=== PATIENT | female | born 1995 | race Two or more races ===

== ENCOUNTER → 2019-12-15 13:30 | Outpatient (BNVA) | payer OTHER, SELFPAY | PROVIDERS: PCP Internal Medicine; Referring Provider Internal Medicine; Visit Provider Advanced Practice Midwife | DX: Z76.89 Persons encountering health services in other specified circumstances (principal) ==

== ENCOUNTER 2019-12-15 14:56 | Outpatient (REF) | payer OTHER, SELFPAY ==
[2019-12-16 02:55] LABS: CT PCR NOT DETECTED (Not Detect.); NG PCR NOT DETECTED (Not Detect.)
[2019-12-16 09:07] LABS: BV Int Neg Control Negative (Negative); BV Int Pos Control Positive (Positive)
[2020-01-14 06:11] LABS: HPV mRNA E6/E7 rflx Not Detected (Not Detected)
== END 2019-12-15 14:57 | disposition home or self-care (01) ==
LOC: HO.LNP 14:56
PROVIDERS: Visit Provider Advanced Practice Midwife
DX: Z12.4 Encounter for screening for malignant neoplasm of cervix (principal); Z11.3 Encounter for screening for infections with a predominantly sexual mode of transmission; R10.2 Pelvic and perineal pain
CPT/HCPCS: 87480; 87491; 87510; 87591; 87624; 87625; 87660; 88142

== ENCOUNTER 2019-12-16 16:10 | Outpatient (REF) | payer OTHER, SELFPAY ==
--- NOTE | 2019-12-16 16:24 | US_ITS ---
EXAMINATION: US PELVIS ULTRASOUND CLINICAL INFORMATION: Pelvic and perineal pain. Age 24. LMP 12/06/2019. COMPARISON: Ultrasound pelvis 03/18/2018 TECHNIQUE: Ultrasound of the pelvis is performed using both transabdominal and transvaginal transducers along with Doppler. Transvaginal imaging is performed due to inadequate visualization transabdominally. FINDINGS: Uterus: The uterus is anteverted and measures 9.6 x 3.8 x 4.1 cm. The double wall endometrial thickness is 5 mm. 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 No definite fundal cleft is seen to confirm bicornuate uterus. This could be further assessed with MRI if clinically indicated. There is small anterior right intramural fundal fibroid again noted approximately 0.5 cm similar to prior study. Echogenic focus within the posterior endometrium or junctional zone again seen. No shadowing. Adnexa: Both ovaries are visualized. There is normal color flow to the adnexa. There is no ovarian torsion. There is no pelvic ascites or fluid collection. No adnexal mass. Right ovary measures 3.9 x 2.2 x 2.4 cm. Volume 11 mL. Left ovary measures 3.9 x 1.9 x 2.2 cm. Volume 9 mL. There is prominent vascularity at the bilateral adnexa and involving the uterus. Findings also noted previously and may be related to pelvic congestion syndrome. Clinically correlate. IMPRESSION: 1. Prominent adnexal and uterine vascularity which may be associated with pelvic congestion syndrome. 2. No adnexal mass or pelvic ascites. 3. Tiny stable uterine fundal fibroid 0.5 cm. Echogenic focus posterior endometrium stable. 4. 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 No definite fundal cleft seen by ultrasound to confirm bicornuate uterus.
== END 2019-12-16 16:11 | disposition home or self-care (01) ==
LOC: HO.US 16:10
PROVIDERS: PCP Internal Medicine; Referring Provider Internal Medicine; Visit Provider Advanced Practice Midwife
DX: R10.2 Pelvic and perineal pain (principal); Z20.828 Contact with and (suspected) exposure to other viral communicable diseases
CPT/HCPCS: 76830; 76856; 87635

== ENCOUNTER → 2019-12-30 10:39 | Outpatient (BNVA) | payer OTHER, SELFPAY | PROVIDERS: PCP Internal Medicine; Referring Provider Internal Medicine; Visit Provider Advanced Practice Midwife | DX: N94.89 Other specified conditions associated with female genital organs and menstrual cycle (principal); F17.210 Nicotine dependence, cigarettes, uncomplicated; Z71.2 Person consulting for explanation of examination or test findings | CPT/HCPCS: 99212 ==

== ENCOUNTER 2020-01-25 15:46 | Emergency (ER) | payer OTHER, SELFPAY ==
[2020-01-25 16:15] VITALS: BP 122/58; PULSE 88; RESP 16; TEMP 37; O2SAT 99; BMI 23.4
--- NOTE | 2020-01-25 18:03 | ED_ITS ---
HPI - Abdominal Pain General Chief Complaint: Abdominal Pain Stated Complaint: PELVIC PAIN Time Seen by Provider: 01/25/20 17:48 Source: patient Mode of arrival: ambulatory Limitations: no limitations History of Present Illness HPI narrative: 24-year-old female with a past medical history of pelvic congestion syndrome here with vaginal bleeding and abdominal cramping for the last few weeks. The patient tells me she started to have her menses 01/04 and has continued to have her menses since then. She tells me she has very light spotting and only requires a panty liner and make changes 1 to 2 times a day. She was seen by creative project manager and was started on Depo and received her 1st shot 01/04. she continues to have lower pelvic cramping with vaginal bleeding. No vaginal discharge or concern for STD exposure. No urinary symptoms, fevers or chills. MD elicited complaint: other (pelvic pain) Onset (ago): week(s) Pain Consistency: intermittent Location: pelvis Severity: mild Quality: cramping Radiation: none Migration to: no migration Exacerbating factors: nothing Relieving factors: nothing Associated symptoms: denies other symptoms Related Data Home Medications Medication Instructions Recorded Confirmed ibuprofen 200 mg tablet 400 mg PO Q8H 12/30/19 Previous Rx's Medication Instructions Recorded medroxyprogesterone 150 mg/mL 150 mg IM [id number] #1 ml 12/30/19 intramuscular suspension Allergies Allergy/AdvReac Type Severity Reaction Status Date / Time No Known Allergies Allergy Unverified 11/18/19 19:37 [No Known Allergies*] Review of Systems Review of Systems Yes all other systems are reviewed and are negative Constitutional: Reports no additional constitutional complaints, Denies body ache(s), Denies chills, Denies fever(s), Denies headache(s) and Denies weakness Eyes: Reports no additional eye complaints and Denies change in vision Reports system reviewed and no additional complaints, except as documented, Denies dizziness, Denies headache(s), Denies nasal congestion, Denies nasal discharge and Denies neck pain Cardiovascular: Reports no additional cardiovascular complaints, Denies chest pain, Denies leg edema and Denies dyspnea Respiratory: Reports no additional respiratory complaints, Denies cough and De nies dyspnea Gastrointestinal: Reports no additional gastrointestinal complaints, Denies abdominal pain, Denies diarrhea, Denies nausea and Denies vomiting Genitourinary: Reports no additional female genitourinary complaints, Reports abnormal vaginal bleeding and Denies urinary incontinence Comments: +pelvic pain Musculoskeletal: Reports no additional musculoskeletal complaints, Denies back pain, Denies arthralgias, Denies joint swelling, Denies neck pain, Denies numbness and Denies tingling Skin/Breast: Reports system reviewed and no additional complaints, except as docu and Denies rash Reports system reviewed and no additional complaints, except as documented, Denies Abnormal speech present, Denies dizziness, Denies headache(s), Denies numbness, Denies tingling and Denies weakness Physical Exam Vital Signs: Vital Signs: Last Vital Signs Temp 98.6 F 01/25/20 19:45 Pulse 79 01/25/20 19:45 Resp 14 01/25/20 19:45 BP 128/62 01/25/20 19:45 Pulse Ox 100 01/25/20 19:45 Body Mass Index 23.4 Const: General: cooperative, healthy appearing, comfortable and no acute distress Orientation/consciousness: patient oriented x3 Limitations: no limitations HENMT: Head: Yes normal to inspection Ears: hearing grossly normal bilaterally General nose exam: Normal external nose present Face and sinus: Yes normal facial exam Mouth: Normal oral and palatal mucosa present Throat: Yes posterior oropharynx normal Eyes: General: appearance normal, both eyes and all related structures Pupils: Equal, round and reactive pupils present Neck: Neck: Yes normal visual inspection Chest: Chest palpation & inspection: normal inspection of the chest Resp: Effort & Inspection: normal respiratory effort Auscultation: clear to auscultation bilaterally Cardio: Rate: regular rate Rhythm: regular rhythm Peripheral pulses: Peripheral pulses 2+ throughout GI: Inspection: Yes normal to inspection Palpation (GI): Soft to palpation and nontender Auscultation: normal bowel sounds : Other: darlene general adjuster External Female Exam: normal external appearance Speculum Exam - Vagina: normal appearance of the vagina and vaginal bleeding (small, dark red) Speculum Exam - Cervix: normal appearance of the cervix Bimanual exam- vagina & uterus: normal bimanual exam Bimanual Exam- Adnexa, other: normal adnexae OB/external & speculum: vaginal bleeding (small, dark red) Back/Spine/Pelvis: Thoracic/Lumbar Spine: thoracic and lumbar spine normal to inspection Skin: General skin exam: no rashes or lesions noted Neuro: General: patient oriented x3, no focal motor deficits and normal sensation to monofilament Cranial nerves: Yes Equal, round and reactive pupils present Cognition (Neuro): normal cognition Speech: No Abnormal speech present Gait exam (Neuro): Normal gait present Motor exam (neuro): 5/5 motor strength present throughout Extrem: General: Yes normal to inspection Course Course Course Narrative: Vaginal bleeding and pelvic cramping for the last 2 weeks. We will need labs, UA, urine , pelvic exam. 2000- CBC unremarkable. UA negative. Urine is negative. Pelvic exam shows a small amount of bleeding. Patient is improved with Toradol IV here. We discussed that with Depo irregular menses is expected. If she wishes to have a different control option she can discuss this with creative project manager. Recommended supportive care and discussion with them in the morning. Reviewed worrisome signs and symptoms and when to return to the emergency department. Comfortable discharge home MDM - Abdominal Pain MDM Narrative Medical decision making narrative: dysmenorrhea, pelvic congestion syndrome, , STD Lab Data Result diagrams: 01/25/20 18:58 01/25/20 18:58 Labs: Lab Results 01/25/20 01/25/20 01/25/20 Range/Units 18:58 18:58 18:58 WBC 7.9 (4.8-10.8) X10*3/uL RBC 4.05 L (4.20-5.50) X10*6/uL Hgb 12.7 (12.0-16.0) g/dl Hct 37.3 (37-47) % MCV 92.1 (80-98) fL MCH 31.4 (27.0-33.0) pg MCHC 34.0 (31.0-35.0) g/dl RDW 11.2 (11.0-16.0) % Plt Count 205 (160-400) X10*3/uL MPV 10.9 (9.4-12.3) fL Immature Gran % (Auto) 0.3 (0.0-0.4) % Neut % (Auto) 68.6 (45-73) % Lymph % (Auto) 23.8 (20-40) % [place] % (Auto) 5.6 (2-11) % Eos % (Auto) 1.4 (0-4) % Baso % (Auto) 0.3 (0-2) % Lymph # (Auto) 1.9 (1.2-4.9) X10*3/uL [place] # (Auto) 0.4 (0.1-1.2) X10*3/uL Eos # (Auto) 0.1 (0.0-0.4) X10*3/uL Baso # (Auto) 0.0 (0.0-0.2) X10*3/uL Abs Immat Gran (auto) 0.02 (0.00-0.03) X10*3/uL Absolute Neuts (auto) 5.4 (2.0-8.3) X10*3/uL Absolute Nucleated RBC 0.000 (0.0-0.012) X10*3/uL Nucleated RBC % (auto) 0.0 (0.0-0.2) /100WBC Sodium 139 (135-145) mmol/L Potassium 4.2 (3.3-5.1) mmol/l Chloride 108 (96-108) mmol/L Carbon Dioxide 23 (22-29) mmol/L Anion Gap 12 (12-20) BUN 9 (9-16) mg/dL Creatinine 0.69 (0.5-1.4) mg/dL Estim Creat Clear Calc 124.6 Estimated GFR > 60 Random Glucose 81 (60-115) mg/dL Calcium 9.2 (8.4-10.2) mg/dL Urine Color YELLOW Urine Appearance CLEAR Urine pH 6.5 (5.0-8.0) Ur Specific [place] 1.020 (1.005-1.025) Urine Protein NEG (NEG-TRACE) MG/DL Urine Glucose (UA) NEG (NEG) MG/DL Urine Ketones 5 (NEG) MG/DL Urine Blood 3+ H (NEG) Urine Nitrite NEG (NEG) Ur Leukocyte Esterase NEG (NEG) Urine RBC 1-4 (0) /HPF Urine WBC 1-4 (0-4) /HPF Ur Squamous Epith Cells 2+ /LPF Urine Bacteria 3+ /LPF Urine Mucus 2+ /LPF Urine Test NEGATIVE (NEGATIVE) Discharge Plan Discharge Clinical Impression: Dysmenorrhea, Female pelvic congestion syndrome Patient Disposition: Home, Self-Care Instructions: Dysmenorrhea (ED) Additional Instructions: Call your creative project manager tomorrow Apply heat to your abdomen and take Motrin or Tylenol for pain as needed Prescriptions: No Action ibuprofen [Motrin IB] 200 mg tablet 400 mg PO Q8H RF: 0 medroxyprogesterone [Depo-Provera] 150 mg/mL suspension 150 mg IM [id number] Qty: 1 RF: 3 Referrals: Physician,Unknown [Primary Care Provider] - 2 days Mohan Danielle MD [Physician] - 2 days Interventions: ED Discharge Assessment Last Done: 01/25/20 20:11 Discharge Date/Time: 01/25/20 20:11 [facility] Past Medical History Attestation statement: The following information was validated with the patient. Source: old records reviewed and nursing notes reviewed Surgical History Hx of section Tubal ligation status Social History Social History Alcohol intake: current Smoking Status: Current every day smoker Tobacco Type: Cigarette Cigarettes Per Day: 20 Years Smoked: 8 Advance Directives: No Advance Directives Information Provided: Yes Sexual orientation: Straight/Heterosexual Gender identity: female
[2020-01-25] MEDS: Ketorolac Tromethamine 30 MG/ML VIAL IVPUSH (18:58)
[2020-01-25 19:09] LABS: Basophils Percent Auto 0.3 % (0-2); Eosinophils Absolute Auto 0.1 X10*3/uL (0.0-0.4); Eosinophils Percent Auto 1.4 % (0-4); Hematocrit 37.3 % (37-47); Hemoglobin 12.7 g/dl (12.0-16.0); Imm Gran Abs Auto 0.02 X10*3/uL (0.00-0.03); Imm Gran Pct Auto 0.3 % (0.0-0.4); Lymphocytes Absolute Auto 1.9 X10*3/uL (1.2-4.9); Lymphocytes Percent Auto 23.8 % (20-40); MANUAL DIFF FLAG NO; Mean Corpuscular Hemoglobin 31.4 pg (27.0-33.0); Mean Corpuscular Volume 92.1 fL (80-98); Mean Platelet Volume 10.9 fL (9.4-12.3); Monocytes Absolute Auto 0.4 X10*3/uL (0.1-1.2); Monocytes Percent Auto 5.6 % (2-11); Neutrophils Absolute Auto 5.4 X10*3/uL (2.0-8.3); Neutrophils Percent Auto 68.6 % (45-73); Platelet Count 205 X10*3/uL (160-400); Red Blood Count 4.05 X10*6/uL (4.20-5.50); Red Cell Distribution Width 11.2 % (11.0-16.0); White Blood Count 7.9 X10*3/uL (4.8-10.8)
--- NOTE | 2020-01-25 19:11 | PC.NURSE ---
CAREER DISCOVERY TEACHER at bedside for pelvic, pt tolerating procedure well. Pt aware of plan of care, awaiting labs at this time.
[2020-01-25 19:23] LABS: Glucose Urine UA NEG (NEG); Leukocyte Esterase Urine NEG (NEG); Nitrite Urine NEG (NEG); PH 6.5 (5.0-8.0); Urine Blood 3+ (NEG); Urine Ketones 5 MG/DL (NEG); Urine Protein NEG (NEG-TRACE)
[2020-01-25 19:26] LABS: Appearance Urine CLEAR; Color Urine YELLOW
[2020-01-25 19:27] LABS: UPreg QC Valid YES; Urine Pregnancy NEGATIVE (NEGATIVE)
[2020-01-25 19:36] LABS: Bacteria Urine 3+ /LPF; Mucus Urine 2+ /LPF; Squamous Epithelial Cell Urine 2+ /LPF
[2020-01-25 19:39] LABS: Anion Gap 12 (12-20); Blood Urea Nitrogen 9 mg/dL (9-16); Calcium 9.2 mg/dL (8.4-10.2); Carbon Dioxide 23 mmol/L (22-29); Chloride 108 mmol/L (96-108); Creatinine Clr Calc Pharmacy 124.6; Estimated Glomerular Filt Rate > 60; Glucose Random 81 mg/dL (60-115); Potassium 4.2 mmol/l (3.3-5.1); Sodium 139 mmol/L (135-145)
[2020-01-25 19:45] VITALS: BP 128/62; PULSE 79; RESP 14; TEMP 37; O2SAT 100
== END 2020-01-25 20:11 | disposition home or self-care (01) ==
PROVIDERS: Nurse Practitioner Family; Emergency Provider Emergency Medicine
DX: N94.4 Primary dysmenorrhea (principal); R10.2 Pelvic and perineal pain; N94.89 Other specified conditions associated with female genital organs and menstrual cycle
CPT/HCPCS: 36415; 80048; 81001; 81025; 85025; 96374; 99283; 99284; J1885

== ENCOUNTER 2020-01-31 15:19 | Outpatient (REF) | payer OTHER, SELFPAY ==
[2020-02-01 09:18] LABS: CT PCR NOT DETECTED (Not Detect.); NG PCR NOT DETECTED (Not Detect.)
[2020-02-01 13:27] LABS: BV Int Neg Control Negative (Negative); BV Int Pos Control Positive (Positive)
== END 2020-01-31 15:20 | disposition home or self-care (01) ==
LOC: HO.LAB 15:19
PROVIDERS: PCP Internal Medicine; Visit Provider Advanced Practice Midwife
DX: N94.6 Dysmenorrhea, unspecified (principal)
CPT/HCPCS: 87480; 87491; 87510; 87591; 87660; 99212

== ENCOUNTER → 2020-03-22 10:48 | Outpatient (BNVA) | payer OTHER, SELFPAY | PROVIDERS: Visit Provider Advanced Practice Midwife | DX: Z30.42 Encounter for surveillance of injectable contraceptive (principal) | CPT/HCPCS: 96372; 99211; J1050 ==

== ENCOUNTER 2020-04-12 16:51 | Outpatient (REF) | payer OTHER, SELFPAY ==
[2020-04-12 17:28] LABS: MANUAL DIFF FLAG NO
[2020-04-12 17:36] LABS: Basophils Percent Auto 0.6 % (0-2); Eosinophils Absolute Auto 0.1 X10*3/uL (0.0-0.4); Eosinophils Percent Auto 1.3 % (0-4); Hematocrit 37.8 % (37-47); Imm Gran Abs Auto 0.01 X10*3/uL (0.00-0.03); Imm Gran Pct Auto 0.1 % (0.0-0.4); Lymphocytes Absolute Auto 1.7 X10*3/uL (1.2-4.9); Lymphocytes Percent Auto 23.5 % (20-40); Mean Corpuscular HGB Conc 34.4 g/dl (31.0-35.0); Mean Corpuscular Hemoglobin 31.9 pg (27.0-33.0); Mean Corpuscular Volume 92.9 fL (80-98); Mean Platelet Volume 11.2 fL (9.4-12.3); Monocytes Absolute Auto 0.5 X10*3/uL (0.1-1.2); Monocytes Percent Auto 6.8 % (2-11); Neutrophils Absolute Auto 4.8 X10*3/uL (2.0-8.3); Neutrophils Percent Auto 67.7 % (45-73); Platelet Count 201 X10*3/uL (160-400); Red Blood Count 4.07 X10*6/uL (4.20-5.50); Red Cell Distribution Width 11.5 % (11.0-16.0); White Blood Count 7.1 X10*3/uL (4.8-10.8)
[2020-04-12 18:17] LABS: Free T4 (Free Thyroxine) 1.12 ng/dL (0.71-1.85); Thyroid Stimulating Hormone 0.96 uIU/mL (0.32-4.0)
[2020-04-12 18:49] LABS: Alanine Aminotransferase 10 U/L (0-31); Alkaline Phosphatase 69 U/L (39-117); Anion Gap 14 (12-20); Aspartate Amino Transferase 13 U/L (5-31); Bilirubin Total 1.2 mg/dL (0.0-1.0); Blood Urea Nitrogen 7 mg/dL (9-16); C Reactive Protein 0.03 mg/dL (< or = 0.50); Calcium 9.4 mg/dL (8.4-10.2); Carbon Dioxide 24 mmol/L (22-29); Chloride 108 mmol/L (96-108); Estimated Glomerular Filt Rate > 60; Glucose Random 94 mg/dL (60-115); Iron 102 mcg/dL (30-160); Percent Iron Saturation 33 % (15-50); Potassium 4.2 mmol/L (3.3-5.1); Sodium 142 mmol/L (135-145); Total Iron Binding Capacity 308 mcg/dL (228-428); Total Protein 7.4 g/dL (6.5-8.0); Unsaturated Iron Binding 206 ug/dL
[2020-04-12 18:58] LABS: Vitamin B12 180 pg/mL (200-900)
== END 2020-04-12 16:52 | disposition home or self-care (01) ==
LOC: HO.LAB 16:51
PROVIDERS: PCP Internal Medicine; Visit Provider Internal Medicine
DX: R42 Dizziness and giddiness (principal); R63.5 Abnormal weight gain; D51.9 Vitamin B12 deficiency anemia, unspecified
CPT/HCPCS: 36415; 80053; 82607; 83540; 84439; 84443; 85025; 86140

== ENCOUNTER → 2020-05-29 14:08 | Outpatient (BNVA) | payer OTHER, SELFPAY | PROVIDERS: PCP Internal Medicine; Visit Provider Advanced Practice Midwife | DX: Z30.42 Encounter for surveillance of injectable contraceptive (principal); R10.2 Pelvic and perineal pain; N94.6 Dysmenorrhea, unspecified | CPT/HCPCS: Q3014 ==

== ENCOUNTER → 2020-06-12 11:14 | Outpatient (BNVA) | payer OTHER, SELFPAY | PROVIDERS: PCP Internal Medicine; Visit Provider Advanced Practice Midwife | DX: Z30.42 Encounter for surveillance of injectable contraceptive (principal) | CPT/HCPCS: 96372; 99211; J1050 ==

== ENCOUNTER 2020-06-21 10:57 | Outpatient (REF) | payer OTHER, SELFPAY ==
--- NOTE | ~2020-06-21 | US_ITS ---
EXAMINATION: US PELVIS AND TRANSVAGINAL CLINICAL INFORMATION: Pelvic pain with spotting. COMPARISON: Ultrasound pelvis complete 12/16/2019 TECHNIQUE: Transabdominal and transvaginal ultrasound of the pelvis is performed. FINDINGS: The uterus is anteverted and anteflexed measuring 9.3 cm in length, 2.6 cm in AP and 4.8 cm in transverse dimension. The endometrial thickness is 0.3 cm. There are scattered, comet-shaped calcifications seen in the endometrial canal. There is a hypoechoic lesion in the anterior fundus of the uterus measuring 0.8 x 0.6 x 0.8 cm consistent with a fibroid. Previously, it measured 0.5 x 0.4 x 0.6 cm. There are small nabothian cysts seen in the cervix. The right ovary measures 3.2 x 1.9 x 1.9 cm and volume 6.1 mL. Previously, it measured 3.9 x 2.4 x 2.2 cm. The left ovary measures 2.7 x 2.0 x 1.8 cm and volume 4.9 mL. Previously, it measured 3.9 x 2.2 x 1.9 cm. There is no free fluid in the cul-de-sac. US/US pelvic and transvaginal IMPRESSION: Stable small anterior fundal uterine fibroid. Small nabothian cyst in cervix. Ovaries are unremarkable.
== END 2020-06-21 10:58 | disposition home or self-care (01) ==
LOC: HO.US 10:57
PROVIDERS: PCP Internal Medicine; Visit Provider Advanced Practice Midwife
DX: N94.6 Dysmenorrhea, unspecified (principal)
CPT/HCPCS: 76830; 76856

== ENCOUNTER → 2020-06-26 11:59 | Outpatient (BNVA) | payer OTHER, SELFPAY | PROVIDERS: PCP Internal Medicine; Visit Provider Advanced Practice Midwife ==

== ENCOUNTER → 2020-09-05 13:00 | Outpatient (BNVA) | payer OTHER, SELFPAY | PROVIDERS: PCP Internal Medicine; Visit Provider Advanced Practice Midwife | DX: Z30.42 Encounter for surveillance of injectable contraceptive (principal) | CPT/HCPCS: 96372; 99211 ==

== ENCOUNTER 2020-10-11 13:53 | Outpatient (REF) | payer OTHER, SELFPAY ==
[2020-10-12 04:19] LABS: CT PCR NOT DETECTED (Not Detect.); NG PCR NOT DETECTED (Not Detect.)
[2020-10-12 09:24] LABS: BV Int Neg Control Negative (Negative); BV Int Pos Control Positive (Positive)
== END 2020-10-11 13:54 | disposition home or self-care (01) ==
LOC: HO.LAB 13:53
PROVIDERS: PCP Internal Medicine; Visit Provider Advanced Practice Midwife
DX: N92.1 Excessive and frequent menstruation with irregular cycle (principal); R10.2 Pelvic and perineal pain
CPT/HCPCS: 81025; 87480; 87491; 87510; 87591; 87660; 99212

== ENCOUNTER 2020-10-12 17:54 | Outpatient (REF) | payer OTHER, SELFPAY ==
[2020-10-12 08:59] LABS: Hematocrit 39.8 % (37-47); Mean Corpuscular HGB Conc 35.2 g/dl (31.0-35.0); Mean Corpuscular Hemoglobin 32.3 pg (27.0-33.0); Mean Corpuscular Volume 91.9 fL (80-98); Mean Platelet Volume 10.4 fL (9.4-12.3); Platelet Count 201 X10*3/uL (160-400); Red Blood Count 4.33 X10*6/uL (4.20-5.50); Red Cell Distribution Width 11.2 % (11.0-16.0); White Blood Count 5.5 X10*3/uL (4.8-10.8)
[2020-10-12 09:53] LABS: Thyroid Stimulating Hormone 1.08 uIU/mL (0.32-4.0)
== END 2020-10-12 17:55 | disposition home or self-care (01) ==
LOC: HO.LAB 17:54
PROVIDERS: Visit Provider Advanced Practice Midwife
DX: N92.1 Excessive and frequent menstruation with irregular cycle (principal)
CPT/HCPCS: 36415; 84443; 85027

== ENCOUNTER → 2020-10-27 09:48 | Outpatient (BNVA) | payer OTHER, SELFPAY | PROVIDERS: PCP Internal Medicine; Visit Provider Advanced Practice Midwife | DX: N92.1 Excessive and frequent menstruation with irregular cycle (principal); R10.2 Pelvic and perineal pain; R87.610 Atypical squamous cells of undetermined significance on cytologic smear of cervix (ASC-US) | CPT/HCPCS: 81025; 99212 ==

== ENCOUNTER → 2020-11-28 09:30 | Outpatient (BNVA) | payer OTHER, SELFPAY | PROVIDERS: Visit Provider Obstetrics & Gynecology | DX: Z30.09 Encounter for other general counseling and advice on contraception (principal); N93.9 Abnormal uterine and vaginal bleeding, unspecified; D21.9 Benign neoplasm of connective and other soft tissue, unspecified; R87.610 Atypical squamous cells of undetermined significance on cytologic smear of cervix (ASC-US) | CPT/HCPCS: 99212 ==

== ENCOUNTER → 2021-02-21 10:48 | Outpatient (BNVA) | payer OTHER, SELFPAY | PROVIDERS: Visit Provider Obstetrics & Gynecology | DX: Z30.9 Encounter for contraceptive management, unspecified (principal) | CPT/HCPCS: 99212 ==

== ENCOUNTER 2022-03-21 15:38 | Outpatient (REF) | payer OTHER, SELFPAY ==
[2022-03-21 16:09] LABS: MANUAL DIFF FLAG NO
[2022-03-21 16:34] LABS: Basophils Percent Auto 0.4 % (0-2); Eosinophils Absolute Auto 0.1 X10*3/uL (0.0-0.4); Eosinophils Percent Auto 0.7 % (0-4); Hematocrit 38.3 % (37.0-47.0); Hemoglobin 13.1 g/dl (12.0-16.0); Imm Gran Abs Auto 0.02 X10*3/uL (0.00-0.03); Imm Gran Pct Auto 0.3 % (0.0-0.4); Lymphocytes Absolute Auto 1.4 X10*3/uL (1.2-4.9); Lymphocytes Percent Auto 20.4 % (20-40); Mean Corpuscular HGB Conc 34.2 g/dl (31.0-35.0); Mean Corpuscular Hemoglobin 32.6 pg (27.0-33.0); Mean Corpuscular Volume 95.3 fL (80.0-98.0); Mean Platelet Volume 11.2 fL (9.4-12.3); Monocytes Absolute Auto 0.3 X10*3/uL (0.1-1.2); Monocytes Percent Auto 4.9 % (2-11); Neutrophils Absolute Auto 5.1 x10*3/uL (2.0-8.3); Neutrophils Percent Auto 73.3 % (45-73); Platelet Count 184 X10*3/uL (160-400); Red Blood Count 4.02 X10*6/uL (4.20-5.50); Red Cell Distribution Width 11.8 % (11.0-16.0); White Blood Count 6.9 X10*3/uL (4.8-10.8)
[2022-03-21 16:59] LABS: Alanine Aminotransferase 9 U/L (0-31); Albumin Level 4.7 g/dL (3.5-5.0); Alkaline Phosphatase 78 U/L (39-117); Anion Gap 11 (12-20); Aspartate Amino Transferase 14 U/L (5-31); Bilirubin Total 1.3 mg/dL (0.0-1.0); Blood Urea Nitrogen 13 mg/dL (9-16); C Reactive Protein < 0.04 mg/dL (< or = 0.50); Calcium 9.3 mg/dL (8.4-10.2); Carbon Dioxide 26 mmol/L (22-29); Chloride 104 mmol/L (96-108); Estimated Glomerular Filt Rate > 60; Glucose Random 83 mg/dL (60-115); Potassium 3.4 mmol/L (3.3-5.1); Sodium 138 mmol/L (135-145)
[2022-03-21 17:11] LABS: Free T4 (Free Thyroxine) 1.13 ng/dL (0.71-1.85); Thyroid Stimulating Hormone 0.51 uIU/mL (0.32-4.0)
[2022-03-21 17:17] LABS: Vitamin B12 179 pg/mL (200-900)
[2022-03-22 18:13] LABS: Thyroid Peroxidase Antibodies 2 IU/mL (<9)
== END 2022-03-21 15:39 | disposition home or self-care (01) ==
LOC: HO.LAB 15:38
PROVIDERS: PCP Internal Medicine; Visit Provider Internal Medicine
DX: R00.2 Palpitations (principal); R63.4 Abnormal weight loss
CPT/HCPCS: 36415; 80053; 82607; 84439; 84443; 85025; 86140; 86376

== ENCOUNTER 2022-06-28 22:47 | Emergency (ER) | payer OTHER, SELFPAY ==
[2022-06-28 22:53] VITALS: BP 129/80; PULSE 90; RESP 18; TEMP 36.4; O2SAT 100; BMI 16.6
--- NOTE | 2022-06-29 00:50 | ED_ITS ---
HPI - Wound/Laceration General Chief Complaint: Wound/Laceration Stated Complaint: R arm Lac Time Seen by Provider: 06/29/22 00:24 Source: patient Mode of arrival: ambulatory Limitations: no limitations History of Present Illness HPI narrative: Patient comes to the emergency room complaining of a laceration to the forearm on the left side. Earlier today, patient was trying to cut watermelon, patient was holding it in her arm against her body, the watermelon stepped in the night at the forearm. Patient denies any other injuries. Related Data Home Medications Medication Instructions Recorded Confirmed buspirone 10 mg tablet 10 mg PO BID 06/26/20 temazepam 15 mg capsule 15 mg PO BEDTIME PRN 06/26/20 aripiprazole 10 mg tablet 10 mg PO DAILY 10/11/20 hydroxyzine HCl 25 mg tablet 25 mg PO BID PRN 10/11/20 trazodone 50 mg tablet 25 - 50 mg PO BEDTIME PRN 10/11/20 Previous Rx's Medication Instructions Recorded ibuprofen 600 mg tablet 600 mg PO QID PRN pain #30 tabs 01/31/20 desogestrel 0.15 mg-ethinyl 1 tab PO DAILY 28 days #28 tabs 02/21/21 estradiol 0.03 mg tablet (Apri) Allergies Allergy/AdvReac Type Severity Reaction Status Date / Time No Known Allergies Allergy Verified 02/21/21 10:52 [No Known Allergies*] Review of Systems Review of Systems: Constitutional : No Weight loss, No Fever, No Chills, No Night Sweats, No Fatigue, No Malaise ENT/Mouth : No Hearing loss, No Ear Pain, No Nasal Congestion, No Sinus Pain, No Hoarseness, No sore throat, No Rhinorrhea, No Swallowing Difficulty Eyes: No Eye Pain, No Swelling, No Redness, No Foreign Body, No Discharge, No Vision Changes Cardiovascular : No Chest Pain, No SOB, No Dyspnea on Exertion, No Orthopnea, No Edema, No Palpitations Respiratory : No Cough, No Sputum, No Wheezing, No Smoke Exposure, No Dyspnea Gastrointestinal : No Nausea, No Vomiting, No Diarrhea, No Constipation, No abdominal Pain, No Hematochezia, No Melena Genitourinary : no irregular bleeding, No Dysuria, No Urinary Frequency, No Hematuria, No Urinary Incontinence, No Urgency, No Flank Pain, No Urinary Flow Changes, No Hesitancy Musculoskeletal : No joint pain, No Myalgias, No Joint Swelling Skin : Laceration to the forearm on the left Neuro : No Weakness, No Numbness, No Paresthesias, No Loss of Consciousness, No Dizziness, No Headache Psych : No Anxiety/Panic, No Depression, No SI/HI/AH/VH, No Social Issues, Heme/Lymph: No Bruising, No Bleeding,No Lymphadenopathy Endocrine : No Polyuria, No Polydipsia, No Temperature Intolerance COUNT INCLUDES THE [facility] Past Medical History Surgical History Hx of section Tubal ligation status Social History Social History Alcohol intake: current Alcohol intake frequency: holidays/special occasions only Patient Tobacco Use Status: Current everyday Tobacco user Cigarettes Per Day: 20 Years Smoked: 8 Smoked in Last 30 Days: Yes Use of substances other than those prescribed or required for medical reasons: No Advance Directives: No Advance Directives Information Provided: Yes Patient : No Sexual orientation: Straight/Heterosexual Gender identity: Female Physical Exam Vital Signs: Vital Signs: Last Vital Signs Temp 97.5 F 06/28/22 22:53 Pulse 90 06/28/22 22:53 Resp 18 06/28/22 22:53 BP 129/80 06/28/22 22:53 Pulse Ox 100 06/28/22 22:53 O2 Del Method Room Air 06/28/22 22:53 BMI result Body Mass Index 16.6 Const: Other: Appearance: Alert. Oriented X3. No acute distress. Eyes: Pupils equal, round and reactive to light. ENT: Pharynx normal. Neck: Normal inspection. Neck supple. No lymph nodes noted. No crepitus CVS: Normal heart rate and rhythm. Pulses normal. Normal S1 and S2 Respiratory: No respiratory distress. Breath sounds normal. No Wheezing. No rales Abdomen: Soft and nontender. No rigidity. No distention. Skin: There is a 5 cm laceration to the forearm on the left side Extremities: No lower extremity edema. No Lacerations. No Rash Neuro: Oriented X 3. No motor deficit. No sensory deficit. Moving all extremities. No slurred speech. CN 2 through 12 grossly intact Psych: calm, cooperative, normal affect Medical Decision Making Medical Decision Making MDM Narrative: -patient denies SI or HI, this was an accident while trying to cut fruit -patient received 8 stitches Procedures Laceration Laceration 1: Site: upper extremity Side (If applicable): left Description: linear Depth: simple, single layer Local Anesthetic: lidocaine 1% Amount of anesthesia used (mL): 10 Pre-repair: wound explored Skin layer closed with: nylon Size (cm): 3-0 Number of sutures: 8 Technique: simple, interrupted Discharge Plan Discharge Clinical Impression: Laceration of skin of forearm Patient Disposition: Home, Self-Care Instructions: Laceration (ED) Additional Instructions: Your stitches need to be removed in 7-10 days . If you see any signs of infection such as redness, pus drainage, fever chills, please return to the emergency room. Please follow-up with your primary care physician tomorrow. If you have any worsening or new symptoms, please return to the emergency room or call 911 Prescriptions: No Action ibuprofen 600 mg tablet 600 mg PO QID PRN (Reason: pain) Qty: 30 1RF buspirone 10 mg tablet 10 mg PO BID temazepam 15 mg capsule 15 mg PO BEDTIME PRN trazodone 50 mg tablet 25 - 50 mg PO BEDTIME PRN hydroxyzine HCl 25 mg tablet 25 mg PO BID PRN aripiprazole 10 mg tablet 10 mg PO DAILY desogestrel-ethinyl estradiol [Apri] 0.15-0.03 mg tablet 1 tab PO DAILY 28 Days Qty: 28 11RF Rx Instructions: Not to be started before 12/04/20
[2022-06-29] MEDS: Diphth,Pertus(ACell),Tet Adult 0.5 ML SYRINGE IM (01:12)
== END 2022-06-29 01:26 | disposition home or self-care (01) ==
PROVIDERS: Emergency Provider Emergency Medicine; PCP Internal Medicine
DX: S51.812A Laceration without foreign body of left forearm, initial encounter (principal); W26.0XXA Contact with knife, initial encounter; Y93.G1 Activity, food preparation and clean up; Y92.030 Kitchen in apartment as the place of occurrence of the external cause; Y99.9 Unspecified external cause status
CPT/HCPCS: 90471; 90715; 99284

== ENCOUNTER 2022-07-10 09:44 | Emergency (ER) | payer OTHER, SELFPAY ==
[2022-07-10 09:59] VITALS: BP 130/90; PULSE 84; RESP 16; TEMP 36.1; O2SAT 98; BMI 20.1
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
[2022-07-10 13:47] LABS: Appearance Urine Clear; Color Urine Yellow; Glucose Urine UA Negative (Negative); Leukocyte Esterase Urine Negative (Negative); Nitrite Urine Negative (Negative); PH 7.5 (5.0-9.0); Specific Gravity - Urine 1.015 (1.005-1.025); UMIC TRIGGER UACC YES; Urine Blood Trace (Negative); Urine Ketones Negative (Negative); Urine Protein Negative (Neg-Trace)
[2022-07-10 13:50] LABS: Bacteria Urine None Seen (None Seen); Hyaline Casts Urine 0-2 /LPF (0-2); RBC Urine 0-2 /HPF (0-2); WBC Urine 0-5 /HPF (0-5)
== END 2022-07-10 14:25 | disposition home or self-care (01) ==
PROVIDERS: Registered Nurse Emergency; Emergency Provider Emergency Medicine Emergency Medical Services; PCP Internal Medicine
DX: S39.012A Strain of muscle, fascia and tendon of lower back, initial encounter (principal); V43.52XA Car driver injured in collision with other type car in traffic accident, initial encounter; Y93.89 Activity, other specified; Y92.414 Local residential or business street as the place of occurrence of the external cause; Y99.9 Unspecified external cause status
CPT/HCPCS: 81001; 99283

== ENCOUNTER 2022-07-17 09:45 | Outpatient (REF) | payer OTHER, SELFPAY ==
[2022-07-18 00:51] LABS: CT PCR NOT DETECTED (Not Detect.); NG PCR NOT DETECTED (Not Detect.)
[2022-07-18 10:59] LABS: BV Int Neg Control Negative (Negative); BV Int Pos Control Positive (Positive)
== END 2022-07-17 09:46 | disposition home or self-care (01) ==
LOC: HO.LNP 09:45
PROVIDERS: PCP Internal Medicine; Visit Provider Advanced Practice Midwife
DX: Z12.4 Encounter for screening for malignant neoplasm of cervix (principal); N94.6 Dysmenorrhea, unspecified; N92.0 Excessive and frequent menstruation with regular cycle; R10.30 Lower abdominal pain, unspecified; Z20.2 Contact with and (suspected) exposure to infections with a predominantly sexual mode of transmission; D21.9 Benign neoplasm of connective and other soft tissue, unspecified; N94.89 Other specified conditions associated with female genital organs and menstrual cycle
CPT/HCPCS: 0353U; 81025; 87480; 87510; 87660; 88142; 99212

== ENCOUNTER 2022-08-09 16:00 | Outpatient (REF) | payer OTHER, SELFPAY ==
--- NOTE | ~2022-08-09 | US_ITS ---
EXAMINATION: US PELVIS CLINICAL INFORMATION: Excessive and frequent menstruation. COMPARISON: Pelvic ultrasound 06/21/2010 TECHNIQUE: Ultrasound of the pelvis is performed using both transabdominal and transvaginal transducers along with Doppler. Transvaginal imaging is performed due to inadequate visualization transabdominally. FINDINGS: UTERUS: The uterus is anteverted and measures 7.6 x 3.4 x 6.1 cm. A small 1.4 x 0.9 x 1.1 cm uterine submucosal fibroid is noted slightly larger than previously (0.8 x 0.6 x 0.8 cm). The double wall endometrial thickness is 0.6 mm. Echogenic foci are present in the endometrium. Nabothian cysts are present in the cervix. ADNEXA: Both ovaries are visualized. There is normal color flow to the adnexa. There is no ovarian torsion. There is no pelvic ascites or fluid collection. Prominent vascular congestion is noted in the adnexa. Right ovary measures 3.1 x 2.7 x 1.8 cm for a volume of 7.9 mL. Left ovary measures 3.0 x 1.8 x 1.7 cm for a volume of 4.8 mL. US/US pelvic and transvaginal IMPRESSION: 1. Small submucosal uterine fibroid. 2. Prominent vascular congestion in the adnexa.
== END 2022-08-09 16:01 | disposition home or self-care (01) ==
LOC: HO.US 16:00
PROVIDERS: Visit Provider Advanced Practice Midwife
DX: N92.0 Excessive and frequent menstruation with regular cycle (principal); D21.9 Benign neoplasm of connective and other soft tissue, unspecified
CPT/HCPCS: 76830; 76856

== ENCOUNTER → 2022-08-20 09:01 | Outpatient (BNVA) | payer OTHER, SELFPAY | PROVIDERS: PCP Internal Medicine; Visit Provider Advanced Practice Midwife | DX: D25.0 Submucous leiomyoma of uterus (principal); N92.0 Excessive and frequent menstruation with regular cycle; N94.6 Dysmenorrhea, unspecified | CPT/HCPCS: 99212 ==

== ENCOUNTER 2023-07-15 14:56 | Outpatient (REF) | payer OTHER, SELFPAY ==
[2023-07-15 15:08] LABS: MANUAL DIFF FLAG NO
[2023-07-15 15:29] LABS: Basophils Percent Auto 0.4 % (0-2); Eosinophils Absolute Auto 0.1 X10*3/uL (0.0-0.4); Hematocrit 37.3 % (37.0-47.0); Hemoglobin 13.2 g/dl (12.0-16.0); Imm Gran Abs Auto 0.03 X10*3/uL (0.00-0.03); Imm Gran Pct Auto 0.4 % (0.0-0.4); Lymphocytes Absolute Auto 1.4 X10*3/uL (1.2-4.9); Lymphocytes Percent Auto 19.9 % (20-40); Mean Corpuscular HGB Conc 35.4 g/dl (31.0-35.0); Mean Corpuscular Hemoglobin 33.2 pg (27.0-33.0); Mean Corpuscular Volume 93.7 fL (80.0-98.0); Mean Platelet Volume 10.9 fL (9.4-12.3); Monocytes Absolute Auto 0.4 X10*3/uL (0.1-1.2); Monocytes Percent Auto 5.6 % (2-11); Neutrophils Absolute Auto 5.1 x10*3/uL (2.0-8.3); Neutrophils Percent Auto 72.7 % (45-73); Platelet Count 205 X10*3/uL (160-400); Red Blood Count 3.98 X10*6/uL (4.20-5.50); Red Cell Distribution Width 11.3 % (11.0-16.0)
[2023-07-15 16:02] LABS: Alanine Aminotransferase 10 U/L (0-31); Albumin Level 4.5 g/dL (3.5-5.0); Alkaline Phosphatase 63 U/L (39-117); Anion Gap 14 (12-20); Aspartate Amino Transferase 13 U/L (5-31); Bilirubin Total 0.8 mg/dL (0.0-1.0); Blood Urea Nitrogen 10 mg/dL (9-16); Calcium 9.3 mg/dL (8.4-10.2); Carbon Dioxide 23 mmol/L (22-29); Chloride 108 mmol/L (96-108); Estimated Glomerular Filt Rate > 60; Glucose Random 87 mg/dL (60-115); Potassium 3.5 mmol/L (3.3-5.1); Sodium 141 mmol/L (135-145); Total Protein 7.1 g/dL (6.5-8.0)
[2023-07-15 16:18] LABS: Thyroid Stimulating Hormone 0.61 uIU/mL (0.32-4.0); Vitamin D 25-OH Total 17.2 ng/mL (>30)
[2023-07-15 16:24] LABS: Vitamin B12 198 pg/mL (200-900)
== END 2023-07-15 14:57 | disposition home or self-care (01) ==
LOC: HO.LAB 14:56
PROVIDERS: PCP Internal Medicine; Visit Provider Internal Medicine
DX: R05.9 Cough, unspecified (principal); E53.8 Deficiency of other specified B group vitamins; E55.9 Vitamin D deficiency, unspecified
CPT/HCPCS: 36415; 80053; 82306; 82607; 84443; 85025

== ENCOUNTER 2023-07-23 08:59 | Outpatient (REF) | payer OTHER, SELFPAY ==
[2023-07-23 15:02] LABS: Bacterial Vaginosis PCR NEGATIVE (Negative); Candida Group PCR DETECTED (Not Detect); Candida glab krusei PCR DETECTED (Not Detect); Trichomonas vaginalis PCR NOT DETECTED (Not Detect)
[2023-07-30 22:47] LABS: HPV mRNA E6/E7 rflx Not Detected (Not Detected)
== END 2023-07-23 09:00 | disposition home or self-care (01) ==
LOC: HO.LNP 08:59
PROVIDERS: PCP Internal Medicine; Visit Provider Advanced Practice Midwife
DX: Z01.419 Encounter for gynecological examination (general) (routine) without abnormal findings (principal); Z11.51 Encounter for screening for human papillomavirus (HPV); Z20.2 Contact with and (suspected) exposure to infections with a predominantly sexual mode of transmission
CPT/HCPCS: 0352U; 87624; 88142; 99395

== ENCOUNTER 2023-07-23 08:59 | Outpatient (AMB) | payer OTHER, SELFPAY ==
--- NOTE | 2023-07-23 09:08 | MHC.OFFVIS ---
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 Doing well with concerns: Seen at [facility] had uterine procedure last year January 2023, was placed on control pills she said 90 day pack, reports bleeding on the placebo week with pelvic cramping and discomfort. Her follow up with MRI and provider visit is for August 03. She is concerned and feels frustrated because she has had multiple procedures with some reactions and really wanted to just have a hysterectomy and not have to have multiple surgeries. There are no records available for that referral in regards to procedures, notes or summarization. She tries to eat healthy and stays active with exercise. Currently is not sexually active. She denies vaginal itching and irritation. She screening offered; she accepts. She is adopted and has no biological information. Last pap smear 2022, negative. [facility] Medical History (Updated 07/23/23 @ 09:37 by Nohemi Saab CNM) Adopted Dysmenorrhea Excessive and frequent menstruation Uterine fibroid Pelvic congestion syndrome Lower abdominal pain Menorrhagia Surgical History Tubal ligation status Hx of section Family History Father HTN (hypertension) Social History Household Members: Children Housing: Apartment Alcohol intake: current Alcohol intake frequency: holidays/special occasions only Patient Tobacco Use Status: Current someday Tobacco user Cigarettes Per Day: 1 Years Smoked: 8 service: No Current occupational status: employed 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 Sexual orientation: Straight/Heterosexual Gender identity: Female Female Reproductive History Menstrual Age of Menarche: 9 control method: pills Total pregnancies: 2 Full term: 2 Number of Living Children: 2 Date of last pap smear: 07/18/22 (Endocervical component present) History of abnormal pap smear: Yes (2019 ASCUS) Review of Systems Const All systems reviewed & are unremarkable except as noted in HPI and below Reports as per HPI Eyes Reports no additional complaints ENT Reports no additional complaints Card Reports no additional complaints Resp Reports no additional complaints GI Reports as per HPI and Reports no additional complaints Reports as per HPI Musc Reports no additional complaints Skin/Breast Reports as per HPI Neuro Reports no additional complaints Psych Reports no additional complaints Endo Reports no additional complaints Alexandre/Lymph Reports no additional complaints Aller/Immun Reports no additional complaints Physical Exam Vital Signs: Last Vital Signs BP 106/66 07/23/23 09:11 BMI result Body Mass Index 20.7 Const General: cooperative, healthy appearing, no acute distress, well developed and alert Orientation/consciousness: patient oriented x3 HEENT Head: Yes normal to inspection Eyes General: appearance normal, both eyes and all related structures Neck Neck: Yes normal visual inspection Thyroid: Thyroid normal Chest Chest palpation & inspection: normal inspection of the chest and other (no puckering, dimpling, peau de orange, retraction, discharge, masses) Breast/axilla inspection: normal inspection of the breasts Breast/axilla palpation: normal palpation of the breasts Resp Effort & Inspection: normal respiratory effort GI Inspection: Yes normal to inspection Palpation (GI): Soft to palpation Rectal Exam - Female: deferred General: Yes bladder normal to palpation External Female Exam: normal external appearance and normal appearance of the urethra Speculum Exam - Vagina: normal appearance of the vagina, normal palpation, normal vaginal discharge and vaginal bleeding (Small amount) Speculum Exam - Cervix: normal appearance of the cervix and normal palpation Bimanual exam- vagina & uterus: normal bimanual exam, normal palpation, uterine size normal, bladder normal to palpation, normal palpation and non-tender Bimanual Exam- Adnexa, other: no masses OB/external & speculum: vaginal bleeding (Small amount) Skin General skin exam: no rashes or lesions noted Rashes: no rashes Neuro General: patient oriented x3 Cognition (Neuro): normal cognition Extrem General: Yes normal to inspection Psych Attitude: cooperative Thought process: Normal thought process present Assessment & Plan Assessment & Plan (1) Encounter for well woman exam with routine gynecological exam: Code(s): Z01.419 - Encounter for gynecological examination (general) (routine) without abnormal findings Category: Medical Plan: Discussed: Current recommendations for pap smears per ASCCP guidelines. Pap smear obtained. Breast awareness and periodic breast exams. Maintain a healthy lifestyle including a well balanced diet and routine exercise. Use condoms for STI and prevention. Sign a release of records from [facility] to get the notes, procedures, advised patient to remind staff at her next follow up on August 03 2 send us the records also. Encouraged her to discuss her OCP use with her provider at that visit to possibly use continuous cycling to prevent a week of bleeding and pain. Patient verbalizes understanding and agrees to the plan of care. She was given opportunity to ask questions and all questions were answered to the best of my ability. RTO in one year for annual pain management nurse practitioner examination. This note is constructed using voice recognition software. While every effort has been made to ensure accuracy, grinder and plater errors may have been included. Orders: Orders Hepatitis B Core Antibody Today Z20.2 - Contact with and (suspected) exposure to infections with a predominantly sexual mode of transmission Bacterial Vaginosis Panel Today Z20.2 - Contact with and (suspected) exposure to infections with a predominantly sexual mode of transmission CT NG by PCR Today Z20.2 - Contact with and (suspected) exposure to infections with a predominantly sexual mode of transmission HIV Ab/Ag Today Z20.2 - Contact with and (suspected) exposure to infections with a predominantly sexual mode of transmission Hepatitis C Antibody Reflex Today Z20.2 - Contact with and (suspected) exposure to infections with a predominantly sexual mode of transmission Syphilis Screen Today Z20.2 - Contact with and (suspected) exposure to infections with a predominantly sexual mode of transmission Coding Level of Care Code Est Pt Prev Care 18-39y(07875) Diagnoses Encounter for well woman exam with routine gynecological exam Z01.419
[2023-07-23 09:11] VITALS: BP 106/66; BMI 20.7
== END 2023-07-23 09:46 | disposition home or self-care (01) ==
PROVIDERS: PCP Internal Medicine; Visit Provider Advanced Practice Midwife
DX: Z01.419 Encounter for gynecological examination (general) (routine) without abnormal findings (principal)
CPT/HCPCS: 99395

== ENCOUNTER 2023-07-23 09:52 | Outpatient (REF) | payer OTHER, SELFPAY ==
[2023-07-23 11:20] LABS: Syphilis Screen Nonreactive (Nonreactive)
[2023-07-23 11:37] LABS: HBc Num1 0.12 S/CO (0.00-0.79); HIV AB/AG Nonreactive (Nonreactive); HIV Num 1 0.05 S/CO (0.00-0.99); Hepatitis B Core Antibody Nonreactive (Nonreactive); ~HepC Num1 0.12 S/CO (0.00-0.79); ~Hepatitis C Antibody Nonreactive (Nonreactive)
[2023-07-23 14:12] LABS: CT PCR NOT DETECTED (Not Detect.); NG PCR NOT DETECTED (Not Detect.)
== END 2023-07-23 09:53 | disposition home or self-care (01) ==
LOC: HO.LAB 09:52
PROVIDERS: PCP Internal Medicine; Visit Provider Advanced Practice Midwife
DX: Z20.2 Contact with and (suspected) exposure to infections with a predominantly sexual mode of transmission (principal)
CPT/HCPCS: 0353U; 86704; 86780; 86803; 87389

== ENCOUNTER 2025-01-25 13:50 | Outpatient (REF) | payer MEDICAID, SELFPAY ==
[2025-01-26 13:40] LABS: CT PCR NOT DETECTED (Not Detect.); NG PCR NOT DETECTED (Not Detect.)
== END 2025-01-25 13:51 | disposition home or self-care (01) ==
LOC: HO.LNP 13:50
PROVIDERS: PCP Internal Medicine; Visit Provider Advanced Practice Midwife
DX: Z01.419 Encounter for gynecological examination (general) (routine) without abnormal findings (principal); Z20.2 Contact with and (suspected) exposure to infections with a predominantly sexual mode of transmission; Z12.39 Encounter for other screening for malignant neoplasm of breast; F17.200 Nicotine dependence, unspecified, uncomplicated; Z71.6 Tobacco abuse counseling; Z98.51 Tubal ligation status
CPT/HCPCS: 87491; 87591

== ENCOUNTER 2025-01-25 13:50 | Outpatient (AMB) | payer MEDICAID, SELFPAY ==
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
[2025-01-25 13:58] VITALS: BP 114/74; BMI 21.0
--- OUTSIDE RECORDS SUMMARY | 2025-01-25 17:40 | XMS_ITS | Encounter Summary ---
Author Organization [facility] Address [address] [place] [phone] Phone Care Team Providers Care Driller'S Assistant Name Role Phone Mark Buckley Primary Care Provider Reason for Visit * Reason Comments Medication Refill Encounter Details Date Type Department Care Team ([facility] st Contact Info) Description 07/30/2022 Refill [facility] at [address] [address] Funmi Diaz, [place] [address] [place] [address] [email or web address] Medication Refill Social History Tobacco Use Types Packs/Day Years Used Date Smoking Tobacco: Every Day Smokeless Tobacco: Never Alcohol Use Standard Drinks/Week Comments Not Currently 0 (1 standard drink = 0.6 oz pur e alcohol) Education Answer Date Recorded Are you interested in more education? Not on [place] e 06/28/2022 Are you concerned about learning? Not on file 06/28/2022 No 06/28/2022 No 06/28/2022 Digital Access Answer Date Recorded No 07/30/2022 No 07/30/2022 No 07/30/2022 Reliable internet access at home? Not on file 07/30/2022 Device with a working camera? Not on file Comments No Sex and Gender Information Value Date Recorded Sex Assigned at Female 12/04/2018 9:33 AM EDT Legal Sex Female 9:25 AM EDT Gender Identity Female 12/04/2018 9:33 AM EDT Sexual Orientation Queer 12/04/2018 9: 33 AM EDT documented as of this encounter Plan of Treatment Not on file documented as of this encounter Visit Diagnoses Not on filedocumented in this encounter Care Teams Driller'S Assistant Relationship Specialty Start Date End Date Mark Buckley DO [address] [place] [phone] PCP - General Family Medicine 12/04/18 documented as of this encounter Additional Source Comments The information contained in this document represents components of the legal health record. It is not the complete legal health record.[facility]
--- OUTSIDE RECORDS SUMMARY | 2025-01-25 17:40 | XMS_ITS | Clinical Summary ---
Author Organization [facility] Address [address] [facility] [address] [place] [phone] Phone Care Team Providers Care Kaiako Kohanga Reo Name Role Phone Mark Buckley Primary Care Provider Allergies No known active allergies Medications No known medications Social History Tobacco Use Types Packs/Day Years [...] Orientation Queer 12/04/2018 9: 33 AM EDT Last Filed Vital Signs Vital Sign Reading Time Taken Comments Blood Pressure 102/57 12/04/2018 12:55 PM EDT Pulse 68 12/04/2018 12:55 PM EDT Temperature 36.7 C (98.1 F) 12/04/2018 9:33 AM EDT Respiratory Rate 18 12/04/2018 12:55 PM EDT Oxygen Saturation 100% 12/04/2018 12:55 PM EDT Inhaled Oxygen Concentration - - Weight 59 kg (130 lb) 12/04/2018 9:38 AM EDT Height 172.7 cm (5' 8 ) 12/04/2018 9:38 AM EDT Body Mass Index 19.77 12/04/2018 9:38 AM EDT Plan of Treatment Not on file Medical Devices Not on file Insurance [employer] [facility] [address] [place] [address] [employer] [facility] [employer] [facility] Care Teams Kaiako Kohanga Reo Relationship Specialty Start Date End Date Mark Buckley DO [address] [place] [phone] PCP - General Family Medicine 12/04/18 Additional Source Comments The information contained in this document represents components of the legal health record. It is not the complete legal health record.[facility]
--- OUTSIDE RECORDS SUMMARY | 2025-01-25 17:40 | XMS_ITS | Patient Health Record ---
Author Organization [facility] [address] Address [address] [place] [place] [address] Care Team Providers Care Substance Abuse Specialist Name Role Phone ELOINA GONZALES Unavailable [phone] Allergies No Known Allergies Results Component Value Reference Range Flag Notes CBC WITH AUTO DIFFERENTIAL Reviewed date:12/06/2024 10:51:19 AM Interpretation: Performing Lab: Notes/Report: WBC 5.6 4.8-10.8 K/mcL RBC 3.80 3.80-4.80 M/mcL Hemoglobin 12.1 11.5-16.0 g/dL Hematocrit 36.3 35.0-47.0 % MCV 95.0 79.0-98.0 FL MCH 31.7 27.0-32.0 pcg MCHC 33.3 32.0-37.0 g/dL RDW 11.7 11.0-15.0 % Platelets 158 130-400 K/mcL MPV 11.5 7.0-11.0 FL H NRBC 0.0 <1.0 % NRBC Absolute 0.00 <0.10 K/mcL Neutrophils Relative 69.6 Lymphocytes Relative 22.3 Monocytes Relative 6.5 Eosinophils Relative 0.9 Basophils Relative 0.5 Immature Granulocytes Relative 0.2 Neutrophils Absolute 3.88 1.50-7.00 K/mcL Lymphocytes Absolute 1.24 1.00-5.00 K/mcL Monocytes Absolute 0.36 0.20-1.00 K/mcL Eosinophils Absolute 0.05 0.00-0.50 K/mcL Basophils Absolute 0.03 0.00-0.20 K/mcL Immature Granulocytes Absolute 0.01 0.00-0.03 K/mcL COMPREHENSIVE METABOLIC PANE L Reviewed date:12/06/2024 10:51:32 AM Interpretation: Performing Lab: Notes/Report: Sodium 138 133-145 mmol/L Potassium 3.9 3.5-5.5 mmol/L Chloride 107 96-110 mmol/L CO2 26 21-32 mmol/L Anion Gap 5 3-11 Glucose 75 70-100 mg/dL BUN 13 5-25 mg/dL Creatinine 0.56 0.50-1.10 mg/dL eGFR 125 >=60 mL/min/1.73m2 Calcul ation based on the Chronic Kidney Disease Epidemiology Collaboration (CKD-EPI) equation refit without adjustment for race. BUN/Creatinine Ratio 23.2 Calcium 9.0 8.5-10.5 mg/dL AST (SGOT) 17 10-42 unit/L ALT (SGPT) 22 10-60 unit/L Alkaline Phosphatase 80 42-121 unit/L Total Protein 6.8 6.0-8.0 g/dL Albumin 4.4 3.2-5.0 g/dL Total Bilirubin 1.5 0.0-1.4 mg/dL H LIPID PANEL WITH REFLEX TO D IRECT LDL Reviewed date:12/06/2024 10:49:43 AM Interpretation: Performing Lab: Notes/Report: Cholesterol 109 0-200 mg/dL Triglycerides 28 0-150 mg/dL HDL 58 >=40 mg/dL LDL Calculated 45 0-100 mg/dL Estimated LDL Calculated using equation: Total cholesterol - HDL cholesterol - (Triglycerides/5) VLDL Cholesterol Bala 5.6 Non HDL Chol. (LDL+VLDL) 51 <145 mg/dL Chol/HDL Ratio 1.9 0.0-4.4 VITAMIN D 25 HYDROXY Reviewed date:12/06/2024 10:52:55 AM Interpretation: Performing Lab: Notes/Report: Vit D, 25-Hydroxy 13.5 30.0-80.0 ng/mL L THYROID STIMULATING HORMONE WITH REFLEX TO FREE T4 AND FREE T3 Reviewed date:12/06/2024 10:49:43 AM Interpretation: Performing Lab: Notes/Report: TSH 0.64 0.40-4.00 mcIU/mL HEMOGLOBIN A1C Reviewed date:12/06/2024 10:49:43 AM Interpretation: Performing Lab: Notes/Report: Hemoglobin A1C 5.0 <6.5 % Mean Bld Glu Estim. 97 Reason For Referral Reason [facility] Allergy; skin rash Diagnosis 1 Skin rash (R21) Referral Organization [facility] [address] Referring Provider First Name ELOINA Referring Provider Last Name CHRISTIAN Referring Provider Speciality Preventive Medicine Referred Provider Specialty Allergy/Immu nology General Notes [address] [place] (p) [phone], (f) [phone] Clinical Notes Sarai Lee 08:32:59 AM > referral faxed with notes; pt. will call an schedule appointment Referral Priority Routine Medications Medication SIG (Take, Route, Frequency, Duration) Notes Start Date End Date Status hydrOXYzine HCl 25 MG Tablet 1 tablet as needed Orally Once a day; Duration: 30 days 12/02/2024 Active Ergocalciferol 1.25 MG (32724 UT) Capsule 1 capsule Orally once weekly; Duration: 56 days 12/06/2024 Active traZODone HCl 50 MG Tablet 1 tablet at b edtime as needed Orally Once a day; Duration: 30 days 12/02/2024 Active Immunizations Vaccine Route Administration Date Status Comme nts influenza IM Intramuscular 01/17/2025 Administered Social History Section Notes: ETOH Use: Social Tob Use: Denies Drug Use: Denies ETOH Use: Social Tob Use: Denies Drug Use: Denies Problems Problem Type SNOMED Code ICD Code Onset Dates Problem Status W/U Status Risk Notes Problem Primary insomnia (7448441) Primary insomnia (F51.01) Active confirmed Problem Skin rash (675261287) Skin rash (R21) Active confirmed Problem Vitamin D deficiency (91171421) Vitamin D deficiency (E55.9) Active confirmed Problem Jaundice (20049842) Elevated bilirubin (R17) Active confirmed Problem Generalized anxiety disorder (05584485) Anxiety, generalized (F41.1) Active confirmed Problem History of endometriosis (6214451134741968 7) History of endometriosis (Z87.42) Active confirmed Vital Signs Heart Rate 67 /min 01/17/2025 Oximetry 99 % 01/17/2025 Blood pressure diastolic 76 mm Hg 01/17/2025 Height 66 in 01/17/2025 Blood pressure systolic 120 mm Hg 01/17/2025 Weight 139.7 lbs 01/17/2025 BMI 22.55 kg/m2 01/17/2025 Encounters Encounter Location Date Provider Diagnosis [facility] [address] [place] [address] 12/06/2024 ELOINA PLACIDA [facility] [address] [facility] [address] [place] [address] 12/20/2024 ELOINA PLACIDA [facility] [address] [facility] [address] [place] [address] 12/03/2024 ELOINA PLACIDA [facility] [address] [address] 12/22/2024 ELOINA PLACIDA [facility] [address] [address] 01/17/2025 [facility] Vitamin D deficiency E55.9 ; Annual physical exam Z00.00 ; Elevated bilirubin R17 ; Primary insomnia F51.01 ; History of endometriosis Z87.42 ; Anxiety, generalized F41.1 ; Encounter for examination of blood pressure without abnormal findings Z01.30 and Encounter for immunization Z23 [facility] [address] [address] 12/02/2024 ELOINA PLACIDA Primary insomnia F51 .01 ; Skin rash R21 ; History of endometriosis Z87.42 and Encounter for examination of blood pressure without abnormal findings Z01.30 Assessments Encounter Date Diagnosis (ICD Code) Assessment Notes Treatment Notes Treatment Clinical Notes Section Notes 12/02/2024 Skin rash (ICD-10 - R21) Krista is a 29-year-old female with a PMH of endometriosis s/p hysterectomy, insomnia that presents today to establish care as a new patient. #Labs: Baseline laboratory evaluation including CBC, CMP, lipid panel, hemoglobin A1c, TSH, and vitamin D ordered to be evaluated and reviewed at time of next appointment, sooner as needed. #Cyclical rash: Reports she episodically develops an erythematous itchy rash. Lesions are small, round, flat, and red. They typically last around 4 days before resolving. Denies known trigger. No one at home with similar symptoms. Manages with benadryl as needed. Recently rash become so severely itchy she went th the ED where they prescribed prednisone, hyrdoxyzine, and triamcinolone which she felt was helpful. Reviewed proper use of topical triamcinolone and risk for skin thinning. Refill of hydroxyzine provided, revieed proper use/SE. Feels skin testing may be helpful, referral to allergy provided. #Insomina: Reports difficulty sleeping. Practicing good sleep hygiene. Currently taking usosom without adequate sleep. Discussed options for management including trazodone vs. metlatonin vs. supplement ProSom. Patient previously taking trazodone with effect, refill for 50mg provided. Reviewed proper use/SE. #History of endometriosis: S/p hysterectomy. Follows with [facility]. Does not currently get menses. All questions answered to the patients satisfaction. Patient demonstrates understanding of diagnosis and treatments discussed. Follow-up in 1 month for CPE with lab review, sooner should any questions/concerns arise. Case discussed with collaborating physician Radha Zheng who has reviewed the assessment/plan. Chart, medications, labs, and vital signs reviewed. Dictation completed with the use of [employer] voice recognition software, prone to medical misidentifications and grammatical errors. All errors are unintentional. Although the practitioner does try to identify and correct errors, some may be present. Please do not hesitate to contact the practitioner for clarification. 01/17/2025 Annual physical exam (ICD-10 - Z00.00) Krista is a 29-year-old female with a PMH of endometriosis s/p hysterectomy, insomnia that presents today to establish care as a new patient. #Labs: Baseline laboratory evaluation including CBC, CMP, lipid panel, hemoglobin A1c, TSH, and vitamin D drawn 12/03/2024, reviewed today. #Vitamin D deficiency: Vitamin D level 13.5. Patient currently completing 8-week course of ergocalciferol 50,000 IUs. Will recheck serum vitamin D to ensure it is within normal limits and consider transition to OTC vitamin D upon completion. #Elevated Bilirubin: Total bilirubin mildly elevated at 1.5. AST/ALT and alk phos within normal limits. Patient denies yellow of the skin/eyes or the presence of palpable abdominal masses. Will repeat CMP/bili panel for continued evaluation. #Insomina: Continue trazadone 50mg once daily. #History of endometriosis: S/p hysterectomy. Follows with [facility]. Does not get menses. #Anxiety: PHQ-9: 13. Patient reports generalized anxiety. Feels she has developed healthy coping mechanism. Feels use of as needed hydroxyzine has been helpful. Denies feelings of depression or wanting to harm herself/others. Discussed options for management including medical management with SSRI/SNRI as well as therapy. Patient will contemplate options. Declines medical therapy at this time. Patient seen and examined. Comprehensive discussion was done on the followin. Discussed the importance of a diet rich in fruit, vegetables, legumes and healthy fats. Patient advised to avoid processed food and carbohydrates, added sugars, and saturated/trans fats. When possible, prepare your own meals and avoid fast food. Read nutrition labels - avoid ingredients including high fructose corn syrup and preservatives. Be contentious of daily calorie intake and weight. 2. Discussed the importance of regular physical activity. Recommended a goal 6-10k steps or 30 minutes of walking per day. Discussed the benefit of weight-bearing exercise and strength training with proper body mechanics/safety precautions. Other activities including cycling, hiking, etc. are recommended and encouraged. Patient advised to seek medical attention for any SOB, chest pain, muscle or joint pain associated with exercise. 3. Discussed risks and benefits of age-appropriate screening guidelines including but not limited to colonoscopy, mammogram, breast examinations, and PAP smears. 4. Discussed safe driving, utilization of seat belts, and the importance of refraining from smart phone while driving. 5. Age-appropriate immunizations were discussed. All questions answered to the patients satisfaction. Patient demonstrates understanding of diagnosis and treatments discussed. Follow-up in 1 month for CPE with lab review, sooner should any questions/concerns arise. Case discussed with collaborating physician Radha Zheng who has reviewed the assessment/plan. Chart, medications, labs, and vital signs reviewed. Dictation completed with the use of [employer] voice recognition software, prone to medical misidentifications and grammatical errors. All errors are unintentional. Although the practitioner does try to identify and correct errors, some may be present. Please do not hesitate to contact the practitioner for clarification.v 01/17/2025 Vitamin D deficiency (ICD-10 - E55.9) Krista is a 29-year-old female with a PMH of endometriosis s/p hysterectomy, insomnia that presents today to establish care as a new patient. #Labs: Baseline laboratory evaluation including CBC, CMP, lipid panel, hemoglobin A1c, TSH, and vitamin D drawn 12/03/2024, reviewed today. #Vitamin D deficiency: Vitamin D level 13.5. Patient currently completing 8-week course of ergocalciferol 50,000 IUs. Will recheck serum vitamin D to ensure it is within normal limits and consider transition to OTC vitamin D upon completion. #Elevated Bilirubin: Total bilirubin mildly elevated at 1.5. AST/ALT and alk phos within normal limits. Patient denies yellow of the skin/eyes or the presence of palpable abdominal masses. Will repeat CMP/bili panel for continued evaluation. #Insomina: Continue trazadone 50mg once daily. #History of endometriosis: S/p hysterectomy. Follows with [facility]. Does not get menses. #Anxiety: PHQ-9: 13. Patient reports generalized anxiety. Feels she has developed healthy coping mechanism. Feels use of as needed hydroxyzine has been helpful. Denies feelings of depression or wanting to harm herself/others. Discussed options for management including medical management with SSRI/SNRI as well as therapy. Patient will contemplate options. Declines medical therapy at this time. Patient seen and examined. Comprehensive discussion was done on the followin. Discussed the importance of a diet rich in fruit, vegetables, legumes and healthy fats. Patient advised to avoid processed food and carbohydrates, added sugars, and saturated/trans fats. When possible, prepare your own meals and avoid fast food. Read nutrition labels - avoid ingredients including high fructose corn syrup and preservatives. Be contentious of daily calorie intake and weight. 2. Discussed the importance of regular physical activity. Recommended a goal 6-10k steps or 30 minutes of walking per day. Discussed the benefit of weight-bearing exercise and strength training with proper body mechanics/safety precautions. Other activities including cycling, hiking, etc. are recommended and encouraged. Patient advised to seek medical attention for any SOB, chest pain, muscle or joint pain associated with exercise. 3. Discussed risks and benefits of age-appropriate screening guidelines including but not limited to colonoscopy, mammogram, breast examinations, and PAP smears. 4. Discussed safe driving, utilization of seat belts, and the importance of refraining from smart phone while driving. 5. Age-appropriate immunizations were discussed. All questions answered to the patients satisfaction. Patient demonstrates understanding of diagnosis and treatments discussed. Follow-up in 1 month for CPE with lab review, sooner should any questions/concerns arise. Case discussed with collaborating physician Radha Zheng who has reviewed the assessment/plan. Chart, medications, labs, and vital signs reviewed. Dictation completed with the use of [employer] voice recognition software, prone to medical misidentifications and grammatical errors. All errors are unintentional. Although the practitioner does try to identify and correct errors, some may be present. Please do not hesitate to contact the practitioner for clarification.v 12/02/2024 Primary insomnia (ICD-10 - F51.01) Krista is a 29-year-old female with a PMH of endometriosis s/p hysterectomy, insomnia that presents today to establish care as a new patient. #Labs: Baseline laboratory evaluation including CBC, CMP, lipid panel, hemoglobin A1c, TSH, and vitamin D ordered to be evaluated and reviewed at time of next appointment, sooner as needed. #Cyclical rash: Reports she episodically develops an erythematous itchy rash. Lesions are small, round, flat, and red. They typically last around 4 days before resolving. Denies known trigger. No one at home with similar symptoms. Manages with benadryl as needed. Recently rash become so severely itchy she went th the ED where they prescribed prednisone, hyrdoxyzine, and triamcinolone which she felt was helpful. Reviewed proper use of topical triamcinolone and risk for skin thinning. Refill of hydroxyzine provided, revieed proper use/SE. Feels skin testing may be helpful, referral to allergy provided. #Insomina: Reports difficulty sleeping. Practicing good sleep hygiene. Currently taking usosom without adequate sleep. Discussed options for management including trazodone vs. metlatonin vs. supplement ProSom. Patient previously taking trazodone with effect, refill for 50mg provided. Reviewed proper use/SE. #History of endometriosis: S/p hysterectomy. Follows with [facility]. Does not currently get menses. All questions answered to the patients satisfaction. Patient demonstrates understanding of diagnosis and treatments discussed. Follow-up in 1 month for CPE with lab review, sooner should any questions/concerns arise. Case discussed with collaborating physician Radha Zheng who has reviewed the assessment/plan. Chart, medications, labs, and vital signs reviewed. Dictation completed with the use of [employer] voice recognition software, prone to medical misidentifications and grammatical errors. All errors are unintentional. Although the practitioner does try to identify and correct errors, some may be present. Please do not hesitate to contact the practitioner for clarification. 01/17/2025 Elevated bilirubin (ICD-10 - R17) Krista is a 29-year-old female with a PMH of endometriosis s/p hysterectomy, insomnia that presents today to establish care as a new patient. #Labs: Baseline laboratory evaluation including CBC, CMP, lipid panel, hemoglobin A1c, TSH, and vitamin D drawn 12/03/2024, reviewed today. #Vitamin D deficiency: Vitamin D level 13.5. Patient currently completing 8-week course of ergocalciferol 50,000 IUs. Will recheck serum vitamin D to ensure it is within normal limits and consider transition to OTC vitamin D upon completion. #Elevated Bilirubin: Total bilirubin mildly elevated at 1.5. AST/ALT and alk phos within normal limits. Patient denies yellow of the skin/eyes or the presence of palpable abdominal masses. Will repeat CMP/bili panel for continued evaluation. #Insomina: Continue trazadone 50mg once daily. #History of endometriosis: S/p hysterectomy. Follows with [facility]. Does not get menses. #Anxiety: PHQ-9: 13. Patient reports generalized anxiety. Feels she has developed healthy coping mechanism. Feels use of as needed hydroxyzine has been helpful. Denies feelings of depression or wanting to harm herself/others. Discussed options for management including medical management with SSRI/SNRI as well as therapy. Patient will contemplate options. Declines medical therapy at this time. Patient seen and examined. Comprehensive discussion was done on the followin. Discussed the importance of a diet rich in fruit, vegetables, legumes and healthy fats. Patient advised to avoid processed food and carbohydrates, added sugars, and saturated/trans fats. When possible, prepare your own meals and avoid fast food. Read nutrition labels - avoid ingredients including high fructose corn syrup and preservatives. Be contentious of daily calorie intake and weight. 2. Discussed the importance of regular physical activity. Recommended a goal 6-10k steps or 30 minutes of walking per day. Discussed the benefit of weight-bearing exercise and strength training with proper body mechanics/safety precautions. Other activities including cycling, hiking, etc. are recommended and encouraged. Patient advised to seek medical attention for any SOB, chest pain, muscle or joint pain associated with exercise. 3. Discussed risks and benefits of age-appropriate screening guidelines including but not limited to colonoscopy, mammogram, breast examinations, and PAP smears. 4. Discussed safe driving, utilization of seat belts, and the importance of refraining from smart phone while driving. 5. Age-appropriate immunizations were discussed. All questions answered to the patients satisfaction. Patient demonstrates understanding of diagnosis and treatments discussed. Follow-up in 1 month for CPE with lab review, sooner should any questions/concerns arise. Case discussed with collaborating physician aRdha Zheng who has reviewed the assessment/plan. Chart, medications, labs, and vital signs reviewed. Dictation completed with the use of [employer] voice recognition software, prone to medical misidentifications and grammatical errors. All errors are unintentional. Although the practitioner does try to identify and correct errors, some may be present. Please do not hesitate to contact the practitioner for clarification.v 12/02/2024 History of endometriosis (ICD-10 - Z87.42) Krista is a 29-year-old female with a PMH of endometriosis s/p hysterectomy, insomnia that presents today to establish care as a new patient. #Labs: Baseline laboratory evaluation including CBC, CMP, lipid panel, hemoglobin A1c, TSH, and vitamin D ordered to be evaluated and reviewed at time of next appointment, sooner as needed. #Cyclical rash: Reports she episodically develops an erythematous itchy rash. Lesions are small, round, flat, and red. They typically last around 4 days before resolving. Denies known trigger. No one at home with similar symptoms. Manages with benadryl as needed. Recently rash become so severely itchy she went th the ED where they prescribed prednisone, hyrdoxyzine, and triamcinolone which she felt was helpful. Reviewed proper use of topical triamcinolone and risk for skin thinning. Refill of hydroxyzine provided, revieed proper use/SE. Feels skin testing may be helpful, referral to allergy provided. #Insomina: Reports difficulty sleeping. Practicing good sleep hygiene. Currently taking usosom without adequate sleep. Discussed options for management including trazodone vs. metlatonin vs. supplement ProSom. Patient previously taking trazodone with effect, refill for 50mg provided. Reviewed proper use/SE. #History of endometriosis: S/p hysterectomy. Follows with [facility]. Does not currently get menses. All questions answered to the patients satisfaction. Patient demonstrates understanding of diagnosis and treatments discussed. Follow-up in 1 month for CPE with lab review, sooner should any questions/concerns arise. Case discussed with collaborating physician Radha Zheng who has reviewed the assessment/plan. Chart, medications, labs, and vital signs reviewed. Dictation completed with the use of [employer] voice recognition software, prone to medical misidentifications and grammatical errors. All errors are unintentional. Although the practitioner does try to identify and correct errors, some may be present. Please do not hesitate to contact the practitioner for clarification. 01/17/2025 Primary insomnia (ICD-10 - F51.01) Krista is a 29-year-old female with a PMH of endometriosis s/p hysterectomy, insomnia that presents today to establish care as a new patient. #Labs: Baseline laboratory evaluation including CBC, CMP, lipid panel, hemoglobin A1c, TSH, and vitamin D drawn 12/03/2024, reviewed today. #Vitamin D deficiency: Vitamin D level 13.5. Patient currently completing 8-week course of ergocalciferol 50,000 IUs. Will recheck serum vitamin D to ensure it is within normal limits and consider transition to OTC vitamin D upon completion. #Elevated Bilirubin: Total bilirubin mildly elevated at 1.5. AST/ALT and alk phos within normal limits. Patient denies yellow of the skin/eyes or the presence of palpable abdominal masses. Will repeat CMP/bili panel for continued evaluation. #Insomina: Continue trazadone 50mg once daily. #History of endometriosis: S/p hysterectomy. Follows with [facility]. Does not get menses. #Anxiety: PHQ-9: 13. Patient reports generalized anxiety. Feels she has developed healthy coping mechanism. Feels use of as needed hydroxyzine has been helpful. Denies feelings of depression or wanting to harm herself/others. Discussed options for management including medical management with SSRI/SNRI as well as therapy. Patient will contemplate options. Declines medical therapy at this time. Patient seen and examined. Comprehensive discussion was done on the followin. Discussed the importance of a diet rich in fruit, vegetables, legumes and healthy fats. Patient advised to avoid processed food and carbohydrates, added sugars, and saturated/trans fats. When possible, prepare your own meals and avoid fast food. Read nutrition labels - avoid ingredients including high fructose corn syrup and preservatives. Be contentious of daily calorie intake and weight. 2. Discussed the importance of regular physical activity. Recommended a goal 6-10k steps or 30 minutes of walking per day. Discussed the benefit of weight-bearing exercise and strength training with proper body mechanics/safety precautions. Other activities including cycling, hiking, etc. are recommended and encouraged. Patient advised to seek medical attention for any SOB, chest pain, muscle or joint pain associated with exercise. 3. Discussed risks and benefits of age-appropriate screening guidelines including but not limited to colonoscopy, mammogram, breast examinations, and PAP smears. 4. Discussed safe driving, utilization of seat belts, and the importance of refraining from smart phone while driving. 5. Age-appropriate immunizations were discussed. All questions answered to the patients satisfaction. Patient demonstrates understanding of diagnosis and treatments discussed. Follow-up in 1 month for CPE with lab review, sooner should any questions/concerns arise. Case discussed with collaborating physician Radha Zheng who has reviewed the assessment/plan. Chart, medications, labs, and vital signs reviewed. Dictation completed with the use of [employer] voice recognition software, prone to medical misidentifications and grammatical errors. All errors are unintentional. Although the practitioner does try to identify and correct errors, some may be present. Please do not hesitate to contact the practitioner for clarification.v 12/02/2024 Encounter for examination of blood pressure without abnormal findings (ICD-10 - Z01.30) Krista is a 29-year-old female with a PMH of endometriosis s/p hysterectomy, insomnia that presents today to establish care as a new patient. #Labs: Baseline laboratory evaluation including CBC, CMP, lipid panel, hemoglobin A1c, TSH, and vitamin D ordered to be evaluated and reviewed at time of next appointment, sooner as needed. #Cyclical rash: Reports she episodically develops an erythematous itchy rash. Lesions are small, round, flat, and red. They typically last around 4 days before resolving. Denies known trigger. No one at home with similar symptoms. Manages with benadryl as needed. Recently rash become so severely itchy she went th the ED where they prescribed prednisone, hyrdoxyzine, and triamcinolone which she felt was helpful. Reviewed proper use of topical triamcinolone and risk for skin thinning. Refill of hydroxyzine provided, revieed proper use/SE. Feels skin testing may be helpful, referral to allergy provided. #Insomina: Reports difficulty sleeping. Practicing good sleep hygiene. Currently taking usosom without adequate sleep. Discussed options for management including trazodone vs. metlatonin vs. supplement ProSom. Patient previously taking trazodone with effect, refill for 50mg provided. Reviewed proper use/SE. #History of endometriosis: S/p hysterectomy. Follows with [facility]. Does not currently get menses. All questions answered to the patients satisfaction. Patient demonstrates understanding of diagnosis and treatments discussed. Follow-up in 1 month for CPE with lab review, sooner should any questions/concerns arise. Case discussed with collaborating physician Radha hZeng who has reviewed the assessment/plan. Chart, medications, labs, and vital signs reviewed. Dictation completed with the use of [employer] voice recognition software, prone to medical misidentifications and grammatical errors. All errors are unintentional. Although the practitioner does try to identify and correct errors, some may be present. Please do not hesitate to contact the practitioner for clarification. 01/17/2025 History of endometriosis (ICD-10 - Z87.42) Krsita is a 29-year-old female with a PMH of endometriosis s/p hysterectomy, insomnia that presents today to establish care as a new patient. #Labs: Baseline laboratory evaluation including CBC, CMP, lipid panel, hemoglobin A1c, TSH, and vitamin D drawn 12/03/2024, reviewed today. #Vitamin D deficiency: Vitamin D level 13.5. Patient currently completing 8-week course of ergocalciferol 50,000 IUs. Will recheck serum vitamin D to ensure it is within normal limits and consider transition to OTC vitamin D upon completion. #Elevated Bilirubin: Total bilirubin mildly elevated at 1.5. AST/ALT and alk phos within normal limits. Patient denies yellow of the skin/eyes or the presence of palpable abdominal masses. Will repeat CMP/bili panel for continued evaluation. #Insomina: Continue trazadone 50mg once daily. #History of endometriosis: S/p hysterectomy. Follows with [facility]. Does not get menses. #Anxiety: PHQ-9: 13. Patient reports generalized anxiety. Feels she has developed healthy coping mechanism. Feels use of as needed hydroxyzine has been helpful. Denies feelings of depression or wanting to harm herself/others. Discussed options for management including medical management with SSRI/SNRI as well as therapy. Patient will contemplate options. Declines medical therapy at this time. Patient seen and examined. Comprehensive discussion was done on the followin. Discussed the importance of a diet rich in fruit, vegetables, legumes and healthy fats. Patient advised to avoid processed food and carbohydrates, added sugars, and saturated/trans fats. When possible, prepare your own meals and avoid fast food. Read nutrition labels - avoid ingredients including high fructose corn syrup and preservatives. Be contentious of daily calorie intake and weight. 2. Discussed the importance of regular physical activity. Recommended a goal 6-10k steps or 30 minutes of walking per day. Discussed the benefit of weight-bearing exercise and strength training with proper body mechanics/safety precautions. Other activities including cycling, hiking, etc. are recommended and encouraged. Patient advised to seek medical attention for any SOB, chest pain, muscle or joint pain associated with exercise. 3. Discussed risks and benefits of age-appropriate screening guidelines including but not limited to colonoscopy, mammogram, breast examinations, and PAP smears. 4. Discussed safe driving, utilization of seat belts, and the importance of refraining from smart phone while driving. 5. Age-appropriate immunizations were discussed. All questions answered to the patients satisfaction. Patient demonstrates understanding of diagnosis and treatments discussed. Follow-up in 1 month for CPE with lab review, sooner should any questions/concerns arise. Case discussed with collaborating physician Radha Zheng who has reviewed the assessment/plan. Chart, medications, labs, and vital signs reviewed. Dictation completed with the use of [employer] voice recognition software, prone to medical misidentifications and grammatical errors. All errors are unintentional. Although the practitioner does try to identify and correct errors, some may be present. Please do not hesitate to contact the practitioner for clarification.v 01/17/2025 Anxiety, generalized (ICD-10 - F41.1) Krista is a 29-year-old female with a PMH of endometriosis s/p hysterectomy, insomnia that presents today to establish care as a new patient. #Labs: Baseline laboratory evaluation including CBC, CMP, lipid panel, hemoglobin A1c, TSH, and vitamin D drawn 12/03/2024, reviewed today. #Vitamin D deficiency: Vitamin D level 13.5. Patient currently completing 8-week course of ergocalciferol 50,000 IUs. Will recheck serum vitamin D to ensure it is within normal limits and consider transition to OTC vitamin D upon completion. #Elevated Bilirubin: Total bilirubin mildly elevated at 1.5. AST/ALT and alk phos within normal limits. Patient denies yellow of the skin/eyes or the presence of palpable abdominal masses. Will repeat CMP/bili panel for continued evaluation. #Insomina: Continue trazadone 50mg once daily. #History of endometriosis: S/p hysterectomy. Follows with [facility]. Does not get menses. #Anxiety: PHQ-9: 13. Patient reports generalized anxiety. Feels she has developed healthy coping mechanism. Feels use of as needed hydroxyzine has been helpful. Denies feelings of depression or wanting to harm herself/others. Discussed options for management including medical management with SSRI/SNRI as well as therapy. Patient will contemplate options. Declines medical therapy at this time. Patient seen and examined. Comprehensive discussion was done on the followin. Discussed the importance of a diet rich in fruit, vegetables, legumes and healthy fats. Patient advised to avoid processed food and carbohydrates, added sugars, and saturated/trans fats. When possible, prepare your own meals and avoid fast food. Read nutrition labels - avoid ingredients including high fructose corn syrup and preservatives. Be contentious of daily calorie intake and weight. 2. Discussed the importance of regular physical activity. Recommended a goal 6-10k steps or 30 minutes of walking per day. Discussed the benefit of weight-bearing exercise and strength training with proper body mechanics/safety precautions. Other activities including cycling, hiking, etc. are recommended and encouraged. Patient advised to seek medical attention for any SOB, chest pain, muscle or joint pain associated with exercise. 3. Discussed risks and benefits of age-appropriate screening guidelines including but not limited to colonoscopy, mammogram, breast examinations, and PAP smears. 4. Discussed safe driving, utilization of seat belts, and the importance of refraining from smart phone while driving. 5. Age-appropriate immunizations were discussed. All questions answered to the patients satisfaction. Patient demonstrates understanding of diagnosis and treatments discussed. Follow-up in 1 month for CPE with lab review, sooner should any questions/concerns arise. Case discussed with collaborating physician Radha Zheng who has reviewed the assessment/plan. Chart, medications, labs, and vital signs reviewed. Dictation completed with the use of [employer] voice recognition software, prone to medical misidentifications and grammatical errors. All errors are unintentional. Although the practitioner does try to identify and correct errors, some may be present. Please do not hesitate to contact the practitioner for clarification.v 01/17/2025 Encounter for examination of blood pressure without abnormal findings (ICD-10 - Z01.30) Krista is a 29-year-old female with a PMH of endometriosis s/p hysterectomy, insomnia that presents today to establish care as a new patient. #Labs: Baseline laboratory evaluation including CBC, CMP, lipid panel, hemoglobin A1c, TSH, and vitamin D drawn 12/03/2024, reviewed today. #Vitamin D deficiency: Vitamin D level 13.5. Patient currently completing 8-week course of ergocalciferol 50,000 IUs. Will recheck serum vitamin D to ensure it is within normal limits and consider transition to OTC vitamin D upon completion. #Elevated Bilirubin: Total bilirubin mildly elevated at 1.5. AST/ALT and alk phos within normal limits. Patient denies yellow of the skin/eyes or the presence of palpable abdominal masses. Will repeat CMP/bili panel for continued evaluation. #Insomina: Continue trazadone 50mg once daily. #History of endometriosis: S/p hysterectomy. Follows with [facility]. Does not get menses. #Anxiety: PHQ-9: 13. Patient reports generalized anxiety. Feels she has developed healthy coping mechanism. Feels use of as needed hydroxyzine has been helpful. Denies feelings of depression or wanting to harm herself/others. Discussed options for management including medical management with SSRI/SNRI as well as therapy. Patient will contemplate options. Declines medical therapy at this time. Patient seen and examined. Comprehensive discussion was done on the followin. Discussed the importance of a diet rich in fruit, vegetables, legumes and healthy fats. Patient advised to avoid processed food and carbohydrates, added sugars, and saturated/trans fats. When possible, prepare your own meals and avoid fast food. Read nutrition labels - avoid ingredients including high fructose corn syrup and preservatives. Be contentious of daily calorie intake and weight. 2. Discussed the importance of regular physical activity. Recommended a goal 6-10k steps or 30 minutes of walking per day. Discussed the benefit of weight-bearing exercise and strength training with proper body mechanics/safety precautions. Other activities including cycling, hiking, etc. are recommended and encouraged. Patient advised to seek medical attention for any SOB, chest pain, muscle or joint pain associated with exercise. 3. Discussed risks and benefits of age-appropriate screening guidelines including but not limited to colonoscopy, mammogram, breast examinations, and PAP smears. 4. Discussed safe driving, utilization of seat belts, and the importance of refraining from smart phone while driving. 5. Age-appropriate immunizations were discussed. All questions answered to the patients satisfaction. Patient demonstrates understanding of diagnosis and treatments discussed. Follow-up in 1 month for CPE with lab review, sooner should any questions/concerns arise. Case discussed with collaborating physician Radha Zheng who has reviewed the assessment/plan. Chart, medications, labs, and vital signs reviewed. Dictation completed with the use of [employer] voice recognition software, prone to medical misidentifications and grammatical errors. All errors are unintentional. Although the practitioner does try to identify and correct errors, some may be present. Please do not hesitate to contact the practitioner for clarification.v 01/17/2025 Encounter for immunization (ICD-10 - Z23) Krista is a 29-year-old female with a PMH of endometriosis s/p hysterectomy, insomnia that presents today to establish care as a new patient. #Labs: Baseline laboratory evaluation including CBC, CMP, lipid panel, hemoglobin A1c, TSH, and vitamin D drawn 12/03/2024, reviewed today. #Vitamin D deficiency: Vitamin D level 13.5. Patient currently completing 8-week course of ergocalciferol 50,000 IUs. Will recheck serum vitamin D to ensure it is within normal limits and consider transition to OTC vitamin D upon completion. #Elevated Bilirubin: Total bilirubin mildly elevated at 1.5. AST/ALT and alk phos within normal limits. Patient denies yellow of the skin/eyes or the presence of palpable abdominal masses. Will repeat CMP/bili panel for continued evaluation. #Insomina: Continue trazadone 50mg once daily. #History of endometriosis: S/p hysterectomy. Follows with [facility]. Does not get menses. #Anxiety: PHQ-9: 13. Patient reports generalized anxiety. Feels she has developed healthy coping mechanism. Feels use of as needed hydroxyzine has been helpful. Denies feelings of depression or wanting to harm herself/others. Discussed options for management including medical management with SSRI/SNRI as well as therapy. Patient will contemplate options. Declines medical therapy at this time. Patient seen and examined. Comprehensive discussion was done on the followin. Discussed the importance of a diet rich in fruit, vegetables, legumes and healthy fats. Patient advised to avoid processed food and carbohydrates, added sugars, and saturated/trans fats. When possible, prepare your own meals and avoid fast food. Read nutrition labels - avoid ingredients including high fructose corn syrup and preservatives. Be contentious of daily calorie intake and weight. 2. Discussed the importance of regular physical activity. Recommended a goal 6-10k steps or 30 minutes of walking per day. Discussed the benefit of weight-bearing exercise and strength training with proper body mechanics/safety precautions. Other activities including cycling, hiking, etc. are recommended and encouraged. Patient advised to seek medical attention for any SOB, chest pain, muscle or joint pain associated with exercise. 3. Discussed risks and benefits of age-appropriate screening guidelines including but not limited to colonoscopy, mammogram, breast examinations, and PAP smears. 4. Discussed safe driving, utilization of seat belts, and the importance of refraining from smart phone while driving. 5. Age-appropriate immunizations were discussed. All questions answered to the patients satisfaction. Patient demonstrates understanding of diagnosis and treatments discussed. Follow-up in 1 month for CPE with lab review, sooner should any questions/concerns arise. Case discussed with collaborating physician Radha Zheng who has reviewed the assessment/plan. Chart, medications, labs, and vital signs reviewed. Dictation completed with the use of [employer] voice recognition software, prone to medical misidentifications and grammatical errors. All errors are unintentional. Although the practitioner does try to identify and correct errors, some may be present. Please do not hesitate to contact the practitioner for clarification.v Plan Of Treatment Pending Test Test Name Order Date 1,25OH VITAMIN D 01/17/2025 COMPREHENSIVE METABOLIC PANEL 01/17/2025 LIPID PANEL, STANDARD 12/02/2024 COMPREHENSIVE METABOLIC PANEL 12/02/2024 CBC (INCLUDES DIFF/PLT) 12/02/2024 HEMOGLOBIN A1c 12/02/2024 TSH W/REFLEX TO FT4 12/02/2024 VITAMIN D,25-OH,TOTAL,IA 12/02/2024 BILIRUBIN PANEL 01/17/2025 Next Appt Details Provider Name:ELOINA Ray, 07/18/2025 03:00:00 PM, [address] [place] [address], [facility] [address], [place], [address], Insurance Providers Payer Name Payer Address Payer Phone Subscriber Number Group Number Insured Name Patient Relationship to Insured Coverage Start Date Coverage End Date [facility] [address] [place] [address] [phone] [id number] Krista Villa Self - patient is the insured Medical (General) History Medical History History ICD Code anxiety depression insomnia Surgical History Surgery Date(Month/Year) hysterectomy 04/27/2024 x2
--- OUTSIDE RECORDS SUMMARY | 2025-01-25 17:40 | XMS_ITS | Clinical Summary ---
Author Organization [address] [facility] Address [address] [place] [address] Phone Care Team Providers Care Putaway Driver Name Role Phone Cheyanne Valdez Primary Care Provider + Social History Tobacco Use Types Packs/Day Years Used Date Smoking Tobacco: Never Assessed Comments Unknown Sex and Gender Information Value Date Recorded Sex Assigned at Not on file Legal Sex Female 2:25 AM EST Gender Identity Not on file Sexual Orientation Not on file Plan of Treatment Health Maintenance Due Date Last Done Comments Hepatitis B Vaccines (1 of 3 - 19+ 3-dose series) 02/22/2012 Cervical Cancer Screening: P ap Smear 2014 HPV Vaccines (1 - 3-dose SCD M series) 02/22/2020 Depression Screening 03/03/2024 COVID-19 Vaccine ( - 2024-2 6 season) 2024 Influenza Vaccine (#1) 2024 9, 01/20/2018 HIV Screening 12/03/2024 Hepatitis C Screening 12/03/2024 Social Influencers of Health Screening 12/03/2024 Cholesterol Screening (Lipid Panel) 12/03/2029 12/03/2024 DTaP,Tdap,and Td Vaccines (2 - Td or Tdap) 06/29/2032 06/29/2022 RSV Immunization Adult Patients (1 - 1-dose 75+ series) 02/22/2068 HIB Vaccines Aged Out No longer eligi ble based on patient's age to complete this topic Hepatitis A Vaccines Aged Out No long er eligible based on patient's age to complete this topic IPV Vaccines Aged Out No longer eligi ble based on patient's age to complete this topic MMR Vaccines Aged Out No longer eligi ble based on patient's age to complete this topic Meningococcal ACWY Vaccine Aged Out N o longer eligible based on patient's age to complete this topic Meningococcal B Vaccine Aged Out No l onger eligible based on patient's age to complete this topic Pneumococcal Vaccine: Pediatrics (0 to 5 Years) and At-Risk Patients (6 to 49 Years) Aged Out No longer eligible b ased on patient's age to complete this topic RSV Immunization Patients Under 20 months Aged Out No longer eligible b ased on patient's age to complete this topic Varicella Vaccines Aged Out No longer eligible based on patient's age to complete this topic Procedures Procedure Name Priority Date/Time Associated Diagnosis Comments CBC WITH AUTO DIFFERENTIAL Routine 12/03/2024 1:49 PM EDT Screening for diabetes mellitus Avitaminosis D Routine general medical examination at a health care facility Screening for thyroid disorder Screening for lipoid disorders HEMOGLOBIN A1C Routine 12/03/2024 1:49 PM EDT Screening for diabetes mellitus Avitaminosis D Routine general medical examination at a health care facility Screening for thyroid disorder Screening for lipoid disorders VITAMIN D 25 HYDROXY Routine 12/03/2024 1:49 PM EDT Screening for diabetes mellitus Avitaminosis D Routine general medical examination at a health care facility Screening for thyroid disorder Screening for lipoid disorders COMPREHENSIVE METABOLIC PANEL Routine 12/03/2024 1:49 PM EDT Screening for diabetes mellitus Avitaminosis D Routine general medical examination at a health care facility Screening for thyroid disorder Screening for lipoid disorders CBC AND DIFFERENTIAL Routine 12/03/2024 1:49 PM EDT Screening for diabetes mellitus Avitaminosis D Routine general medical examination at a health care facility Screening for thyroid disorder Screening for lipoid disorders THYROID STIMULATING HORMONE WITH REFLEX TO FREE T4 AND FREE T3 Routine 12/03/2024 1:49 PM EDT Screening for diabetes mellitus Avitaminosis D Routine general medical examination at a health care facility Screening for thyroid disorder Screening for lipoid disorders LIPID PANEL WITH REFLEX TO DIRECT LDL Routine 12/03/2024 1:49 PM EDT Screening for diabetes mellitus Avitaminosis D Routine general medical examination at a health care facility Screening for thyroid disorder Screening for lipoid disorders from Last 3 Months Results * Thyroid stimulating hormone with reflex to free t4 and free t3 (12/03/2024 1:49 PM EDT) Pathologist [facility] TSH 0.64 0.40 - 4.00 mcIU/mL LAB CHEMISTRY METHOD 12/03/2024 5:46 PM EDT [facility] Blood Venous blood specimen / Unknown Venipuncture / Unknown 12/03/2024 1:49 PM EDT 12/03/2024 4:10 PM EDT us Cheyanne MELENDEZ LAB BLOOD ORDERABLES Fin al Result [facility] [address] [place] [address], [place] [phone] * Lipid panel with reflex to direct LDL (12/03/2024 1:49 PM EDT) [facility] Cholesterol 109 0 - 200 mg/dL LAB CHEMISTRY METHOD 12/03/2024 4:50 PM EDT [facility] Triglycerides 28 0 - 150 mg/dL LAB CHEMISTRY METHOD 12/03/2024 4:50 PM EDT [facility] HDL 58 >=40 mg/dL LAB CHEMISTRY METHOD 12/03/2024 4:50 PM EDT [facility] LDL Calculated 45 0 - 100 mg/dL LAB CHEMISTRY METHOD 12/03/2024 4:50 PM EDT [facility] Comment:Estimated LDL Calcul ated using equation: Total cholesterol - HDL cholesterol - (Triglycerides/5) VLDL Cholesterol Bala 5.6 mg/dL LAB CHEMISTRY METHOD 12/03/2024 4:50 PM EDT [facility] Non HDL Chol. (LDL+VLDL) 51 <145 mg/dL LAB CHEMISTRY METHOD 12/03/2024 4:50 PM EDT [facility] Chol/HDL Ratio 1.9 0.0 - 4.4 LAB CHEMISTRY METHOD 12/03/2024 4:50 PM EDT [facility] Blood Venous blood specimen / Unknown Venipuncture / Unknown 12/03/2024 1:49 PM EDT 12/03/2024 4:10 PM EDT us Cheyanne MELENDEZ LAB BLOOD ORDERABLES Fin al Result [facility] [address] [place] [address], * (ABNORMAL) CBC auto differential (12/03/2024 1:49 PM EDT) WBC 5.6 4.8 - 10.8 K/mcL LAB HEMETOLOGY METHOD 12/03/2024 4:21 PM EDT [facility] RBC 3.80 3.80 - 4.80 M/mcL LAB HEMETOLOGY METHOD 12/03/2024 4:21 PM EDT [facility] Hemoglobin 12.1 11.5 - 16.0 g/dL LAB HEMETOLOGY METHOD 12/03/2024 4:21 PM EDT [facility] Hematocrit 36.3 35.0 - 47.0 % LAB HEMETOLOGY METHOD 12/03/2024 4:21 PM EDT [facility] MCV 95.0 79.0 - 98.0 FL LAB HEMETOLOGY METHOD 12/03/2024 4:21 PM EDT [facility] MCH 31.7 27.0 - 32.0 pcg LAB HEMETOLOGY METHOD 12/03/2024 4:21 PM EDT [facility] MCHC 33.3 32.0 - 37.0 g/dL LAB HEMETOLOGY METHOD 12/03/2024 4:21 PM EDT [facility] RDW 11.7 11.0 - 15.0 % LAB HEMETOLOGY METHOD 12/03/2024 4:21 PM EDT [facility] Platelets 158 130 - 400 K/mcL LAB HEMETOLOGY METHOD 12/03/2024 4:21 PM [facility] MPV 11.5(H) 7.0 - 11.0 FL LAB HEMETOLOGY [facility] NRBC 0.0 <1.0 % LAB HEMETOLOGY METHOD 12/03[facility]2024 4[facility] NRBC Absolute 0.00 <0.10 K/mcL LAB HEMETOLOGY METHOD 12/03/2024 4:21 PM [facility] Neutrophils Relative 69.6 % LAB HEMETOLOGY METHOD 12/03/2024 4:21 PM [facility] Lymphocytes Relative 22.3 % LAB HEMETOLOGY METHOD 12/03/2024 4:21 PM [facility] Monocytes Relative 6.5 % LAB HEMETOLOGY METHOD 12/03/2024 4:21 PM [facility] Eosinophils Relative 0.9 % LAB HEMETOLOGY METHOD 12/03/2024 4:21 PM [facility] Basophils Relative 0.5 % LAB HEMETOLOGY METHOD 12/03/2024 4:21 PM [facility] Immature Granulocytes Relative 0.2 % LAB HEMETOLOGY METHOD 12/03/2024 4:21 PM [facility] Neutrophils Absolute 3.88 1.50 - 7.00 K/mcL LAB HEMETOLOGY METHOD 12/03/2024 4:21 PM [facility] Lymphocytes Absolute 1.24 1.00 - 5.00 K/mcL LAB HEMETOLOGY METHOD 12/03/2024 4:21 PM [facility] Monocytes Absolute 0.36 0.20 - 1.00 K/mcL LAB HEMETOLOGY METHOD 12/03/2024 4:21 PM EDT [facility] Eosinophils Absolute 0.05 0.00 - 0.50 K/mcL LAB HEMETOLOGY METHOD 12/03/2024 4:21 PM EDT [facility] Basophils Absolute 0.03 0.00 - 0.20 K/[facility] LAB HEMETOLOGY METHOD 12/03/2024 4:21 PM EDT [facility] Immature Granulocytes Absolute 0.01 0.00 - 0.03 K/[facility] LAB HEMETOLOGY METHOD 12/03/2024 4:21 PM EDT [facility] Blood Venous blood specimen / Unknown Venipuncture / Unknown 12/03/2024 1:49 PM EDT 12/03/2024 4:09 PM EDT Cheyanne MELENDEZ LAB BLOOD ORDERABLES Fin al Result Performing Organization Address City/[facility]/ZIP Co de Phone Number [facility] [address] [place] [address], [place] [phone] * (ABNORMAL) Vitamin D 25 hydroxy (12/03/2024 1:49 PM EDT) [facility] Vit D, 25-Hydroxy 13.5(L) 30.0 - 80.0 ng/mL LAB CHEMISTRY METHOD 12/03/2024 5:46 PM EDT [facility] Blood Venous blood specimen / Unknown Venipuncture / Unknown 12/03/2024 1:49 PM EDT 12/03/2024 4:10 PM EDT Cheyanne MELENDEZ LAB BLOOD ORDERABLES Fin al Result [facility] [address] [place] [address], [place] [phone] * Hemoglobin A1c (12/03/2024 1:49 PM EDT) [facility] Hemoglobin A1C 5.0 <6.5 % LAB CHEMISTRY METHOD 12/03/2024 8:24 PM T [facility] Mean Bld Glu Estim. 97 mg/dL LAB CHEMISTRY METHOD 12/03/2024 8:24 PM [facility] Blood Venous blood specimen / Unknown Venipuncture / Unknown 12/03/2024 1:49 PM EDT 12/03/2024 4:09 PM EDT us Cheyanne MELENDEZ LAB BLOOD ORDERABLES Fin al Result [facility] [address] [place] [address], * (ABNORMAL) Comprehensive metabolic panel (12/03/2024 1:49 PM EDT) Sodium 138 133 - 145 mmol/L LAB CHEMISTRY METHOD 12/03/2024 4:47 PM [facility] Potassium 3.9 3.5 - 5.5 mmol/L LAB CHEMISTRY METHOD 12/03/2024 4:47 PM [facility] Chloride 107 96 - 110 mmol/L LAB CHEMISTRY METHOD 12/03/2024 4:47 PM [facility] CO2 26 21 - 32 mmol/L LAB CHEMISTRY METHOD 12/03/2024 4:47 PM [facility] Anion Gap 5 3 - 11 LAB CHEMISTRY METHOD 12/03/2024 4:47 PM [facility] Glucose 75 70 - 100 mg/dL LAB CHEMISTRY METHOD 12/03/2024 4:47 PM [facility] BUN 13 5 - 25 mg/dL LAB CHEMISTRY METHOD 12/03/2024 4:47 PM [facility] Creatinine 0.56 0.50 - 1.10 mg/dL LAB CHEMISTRY METHOD 12/03/2024 4:47 PM [facility] eGFR 125 >=60 mL/min/1. 73m2 LAB CHEMISTRY METHOD 12/03/2024 4:47 PM EDT [facility] Comment:Calculation based on the Chronic Kidney Disease Epidemiology Collaboration (CKD-EPI) equation refit without adjustment for race. BUN/Creatinine Ratio 23.2 LAB CHEMISTRY METHOD 12/03/2024 4:47 PM EDT [facility] Calcium 9.0 8.5 - 10.5 mg/dL LAB CHEMISTRY METHOD 12/03[facility]2024 4:[facility] AST (SGOT) 17 10 - 42 unit/L LAB CHEMISTRY METHOD 12/03/2024 4:47 PM [facility] ALT (SGPT) 22 10 - 60 unit/L LAB CHEMISTRY METHOD 12/03/2024 4:47 PM [facility] Alkaline Phosphatase 80 42 - 121 unit/L LAB CHEMISTRY METHOD 12/03/2024 4:47 PM [facility] Total Protein 6.8 6.0 - 8.0 g/dL LAB CHEMISTRY METHOD 12/03/2024 4:47 PM [facility] Albumin 4.4 3.2 - 5.0 g/dL LAB CHEMISTRY METHOD 12/03/2024 4:47 PM [facility] Total Bilirubin 1.5(H) 0.0 - 1.4 mg/dL LAB CHEMISTRY METHOD 12/03/2024 4:47 PM T [facility] Blood Venous blood specimen / Unknown Venipuncture / Unknown 12/03/2024 1:49 PM EDT 12/03/2024 4:10 PM EDT us Cheyanne MELENDEZ LAB BLOOD ORDERABLES Fin al Result [facility] [address] [place] [address], from Last 3 Months Insurance [facility] Care Teams Putaway Driver Relationship Specialty Start Date End Date Cheyanne Valdez PA [address] [place] [phone] PCP - General 12/03/24
== END 2025-01-25 15:00 | disposition home or self-care (01) ==
LOC: HO.HWSM 13:50
PROVIDERS: PCP Internal Medicine; Visit Provider Advanced Practice Midwife
DX: Z01.419 Encounter for gynecological examination (general) (routine) without abnormal findings (principal); Z12.39 Encounter for other screening for malignant neoplasm of breast; Z11.3 Encounter for screening for infections with a predominantly sexual mode of transmission
CPT/HCPCS: 99395